=== PATIENT | female | born 1990 ===

== ENCOUNTER 2024-02-10 07:42 | Inpatient (IN) ==
--- OUTSIDE RECORDS SUMMARY | 2024-02-10 08:01 | External Medical Summary | Summary of Care ---
Author Name Unknown Organization [facility] Address [address] [place] [address] Phone [phone] Care Team Providers Care Clinical Mental Health Counselor Name Role Phone Unavailable Primary Care Provider Unavailabl e Reason for Visit * Reason Comments Return Visit [id number] Encounter Details Date Type Department Care Team (Late st Contact Info) Description 02/03/2024 3:30 PM EDT Office Visit Gynecology/Obstetric [facility] [place] [address] [place] [address] Snow Kearney MD [address] [place] [address] Antepartum anemia complicating * Allergies Active Allergy Reactions Criticality Noted Date Comments Amoxicillin 08/15/2004 hives Cefaclor 08/15/2004 hives documented as of this encounter (statuses as of 02/03/2024) Medications Medication Sig Dispensed Refills Start Date End Date Status 27-0.8 MG Oral Tablet Take 1 Tablet by mouth daily at noon. Active Breast PumpIndications:Breas t feeding status of mother Z39.1 1 Each 11/18/2023 Active Iron-Vitamin C 65-125 MG Oral Tablet (Vitron C)Indications:Antepar marlen anemia complicating Take 1 Tablet by mouth in the morning and 1 Tablet before bedtime. 180 Tablet 2 11/19/2023 Active Docusate Sodium 100 MG Oral Capsule (Colace)Indications:A ntepartum anemia complicating Take 1 Capsule by mouth 2 times a day as needed for Constipation. 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 Psychophysiologic insomnia 07/07/2020 Major depressive disorder, recurrent episode, mo derate 10/20/2019 CHARI (generalized anxiety disorder) 10/20/2019 Mood swing 10/20/2019 Low grade squamous intraepit helial lesion (LGSIL) on cervical Pap smear 04/04/2017 Hearing loss 09/16/2015 NONALLLERGIC RHINITIS 08/15/2004 Estimated Date of Delivery Comme nts Yes 02/04/2024 Based on Ultraso und documented as of this encounter (statuses as of 02/03/2024) Immunizations Name Administration Dates Next Due TDAP (age 10 and older)(Boostrix) 10/01/2022, TDAP, Age 7 and older, IM (Adacel) 12/02/2023 documented as of this encounter Social History Tobacco Use Types Packs/Day Years Used Date Smoking Tobacco: Former Cigarettes 0.3 2 0 06/14/2020 - 06/14/2022 Smokeless Tobacco: Never Tobacco Cessation:Counseling Given: Not Answered Alcohol Use Standard Drinks/Week Comments Not Currently 0 (1 standard drink = 0.6 oz pur e alcohol) occasions PHQ-2 Answer Date Recorded PHQ Adult Total Score 8 07/10/2023 Hunger Vital Sign Answer Date Recorded Within the past 12 months, y ou worried that your food would run out before you got the money to buy more. Sometimes true Within the past 12 months, t he food you bought just didn't last and you didn't have money to get more. Sometimes true 06/2023 [place] Depression Scale Answer Date Recorded [place] Depression Scale Total 8 07/14/2023 The thought of harming myself has occurred to me . Never 07/14/2023 Childcare Answer Date Recorded Do you feel overwhelmed with taking care of a child, family member or friend? Yes 01/15/2024 Does your family need help f inding childcare? (Household - for ages 0-17 years) Not on file 01/15/2024 Clothing Answer Date Recorded Have you been unable to get clothing when it was really needed? Yes 01/15/2024 Is your family able to get c lothes or diapers when needed? (Household - for ages 0-17 years) Not on file 01/15/2024 Personal Safety Answer Date Recorded Do you feel unsafe or have concerns for your saf ety? No 01/15/2024 Do you have concerns for you r family's safety? (Household - for ages 0-17 years) Not on file 01/15/2024 Utilities Answer Date Recorded Do you have trouble paying y our heating, water, or electric bill? Yes 01/15/2024 Is your family able to pay t he heat, water, or electric bill? (Household - for ages 0-17 years) Not on file 01/15/2024 Does your family have access to good internet? (Household - for ages 0-17 years) Not on file 01/15/2024 Employment Status Answer Date Recorded Are you unemployed or without regular income? No 01/15/2024 Does the household have a [facility] source of income? (Household - for ages 0-17 years) Not on file 01/15/2024 Social Connections Answer Date Recorded How often do you feel lonely or isolated from those around you? Sometimes 01/15/2024 Financial Resource Strain Answer Date R ecorded Do you have any trouble payi ng for your medications, or do you think you might in the future? No 01/15/2024 Does your family have troubl e paying for medicine? (Household - for ages 0-17 years) Not on file 01/15/2024 Transportation Needs Answer Date Record ed READ ONLY Do you have troubl e getting a ride to medical visits or work? Never True 01/15/2024 Does your family have a hard time getting a ride to doctors visits? (Household - for ages 0-17 years) Not on file 01/15/2024 Has lack of transportation k ept you from medical appointments, meetings, work, or from getting things needed for daily living? Check all that apply. No 01/15/2024 Do you (or your family) have trouble finding or paying for a ride (transportation)? (Household - for ages 0-17 years) Not on file 01/15/2024 Housing Stability Answer Date Recorded Do you currently live in a s helter or have no steady place to sleep at night? No 01/15/2024 READ ONLY Do you think you a re at risk of becoming homeless? No 01/15/2024 Does your family worry about paying for your home or becoming homeless? (Household - for ages 0-17 years) Not on file 1 Are you homeless or worried that you might be in the future? No 01/15/2024 Are you (or your family) edwige eless or worried that you might be in the future? (Household - for ages 0-17 years) Not on file Food Insecurity Answer Date Recorded Do you need food for this week? No 01/15/2024 Are you able to get enough f ood for your family? (Household - for ages 0-17 years) Not on file 01/15/2024 Does your family need food t his week? (Household - for ages 0-17 years) Not on file 01/15/2024 Do you always have enough fo od for your family? (Household - for ages 0-17 years) Not on file 01/15/2024 Estimated Date of Delivery Comme nts Yes 02/04/2024 Based on Ultraso und Sex and Gender Information Value Date Recorded Sex Assigned at Female 08/15/2022 10:12 AM EDT Gender Identity Female 08/15/2022 10:12 AM EDT Sexual Orientation Straight 08/15/2022 10 :12 AM EDT Job Start Date Occupation Industry Not on file Not on file Not on file documented as of this encounter Last Filed Vital Signs Vital Sign Reading Time Taken Comments Blood Pressure 106/64 02/03/2024 3:29 PM EDT Pulse - - Temperature 36.7 C (98.1 F) 02/03/2024 3:29 PM ED T Respiratory Rate - - Oxygen Saturation - - Inhaled Oxygen Concentration - - Weight 65 kg (143 lb 3.2 oz) 02/03/2024 3:29 PM EDT Height - - Body Mass Index 26.19 11/14/2023 11:36 AM EDT documented in this encounter Progress Notes * Snow Kearney MD - 02/03/2024 3:30 PM EDT Patient is 34 year old at 39 6/7 weeks who presents for LUZ visit Denies contractions, leaking of fluid, or vaginal bleeding. Noted good movement. Having more tightening, having more pressure. Would like to be checked today Denies headache, blurry vision, RUQ or epigastric pain. Would like membrane stripped Problem list reviewed BP 106/64 | Temp 36.7 C (98.1 F) | Wt 65 kg (143 lb 3.2 oz) | LMP (LMP Unknown) | BMI 26.19 kg/m | BSA 1.69 m FH: 39 FHT: 140 Cx: 3 stretched to 4/50/-3, soft anterior, membrane stripped per patient's permission Manager R D Documentation Provider requested log yard derrick operator. Name of log yard derrick operator: Kathy Rodriguez LPN US cephalic, placenta posterior fundal Plan: Labor and preeclampsia warnings reviewed Flu vaccine declined previously Offered postdates Induction to be scheduled at [facility] , politely declines at this time Patient was given answering service number and Labor and delivery phone number for [facility] 1 weeks V Caio BERRY PhD documented in this encounter Nursing Notes * Kathy Rodriguez LPN - 02/03/2024 3:26 PM EDT Chief Complaint Patient presents with Return Visit [id number] Pt is with no concerns. GBS neg Kathy Rodriguez LPN documented in this encounter Plan of Treatment Health Maintenance Due Date Last Done Comments Hepatitis B Vaccine (1 of 3 - 19+ 3-dose series) 2009 HPV/Co-Test 01/27/2020 Cervical Cancer Screening 08/25/2023 Pap Smear 08/25/2023 08/24/2020, 03/27/2017, 12/17/2012 COVID-19 Vaccine (2023-2 5 season) 2023 Influenza Vaccine (FLU shot) (#1) 2023 Depression Monitoring 07/09/2024 07/10/2023 DTap/Tdap Vaccines (4 - Td o r Tdap) 12/01/2033 12/02/2023, 10/01/2022, 12/03/2014 HPV (Gardasil) Vaccine Aged Out No lo nger eligible based on patient's age to complete this topic MENINGOCOCCAL (MENACTRA/MENVEO) Aged Out No longer eligible b ased on patient's age to complete this topic Pneumococcal Vaccine: Pediatrics (0 to 5 Years) and At-Risk Patients (6 to 64 Years) Aged Out No longer eligible b ased on patient's age to complete this topic documented as of this encounter Medical Devices Not on filedocumented as of this encounter Visit Diagnoses Diagnosis Antepartum anemia complicating - Primary Anemia, antepartum documented in this encounter"
--- OUTSIDE RECORDS SUMMARY | 2024-02-10 08:01 | External Medical Summary | Summary of Care ---
Author Name Unknown Organization [facility] Address [address] [place] [address] Phone [phone] Care Team Providers Care Outreach Clinician Name Role Phone Unavailable Primary Care Provider Unavailabl e Encounter Details Date Type Department Care Team (Late st Contact Info) Description 02/04/2024 Result Scan Unspecified Department <No scans attached> Allergies Active Allergy Reactions Criticality Noted Date Comments Amoxicillin 08/15/2004 hives Cefaclor 08/15/2004 hives documented as of this encounter (statuses as of 02/05/2024) Medications Medication Sig Dispensed Refills Start Date [...] as of this encounter (statuses as of 02/05/2024) Active Problems Problem Noted Date Diagnosed Date Antepartum anemia complicating 024 Food insecurity 07/21/2023 Overview: Per [facility] Protocol Shift work sleep disorder [...] as of this encounter (statuses as of 02/05/2024) Immunizations Name Administration Dates Next Due TDAP (age 10 and older)(Boostrix) 10/01/2022, TDAP, Age 7 and older, IM (Adacel) 12/02/2023 documented as of this encounter Social History Tobacco Use Types Packs/Day Years Used Date Smoking Tobacco: Former Cigarettes 0.3 2 0 06/14/2020 - 06/14/2022 Smokeless Tobacco: Never Alcohol Use Standard Drinks/Week Comments Not Currently [...] money to get more. Sometimes true 06/2023 [place] Depression Scale Answer Date Recorded [place] Depression Scale Total 8 07/14/2023 The thought [...] No 01/15/2024 Does the household have a re gular source of income? (Household - for ages [...] on file documented as of this encounter Plan of Treatment Upcoming Encounters Date Type Department Care Team (Late st Contact Info) Description 02/10/2024 2:45 PM EDT Office Visit Gynecology/Obstetrics, [place] [address] [address] Vanessa Wiggins PA-C [address] [place] [address] Health Maintenance Due Date Last Done Comments [...] Not on filedocumented as of this encounter Procedures Procedure Name Priority Date/Time Associated Diagnosis Comments OUTSIDE LAB RESULTS 02/04/2024 documented in this encounter Results * OUTSIDE LAB RESULTS (02/04/2024) 02/04/2024 No Physician Data Unknown LABORATORY documented in this encounter
--- OUTSIDE RECORDS SUMMARY | 2024-02-10 08:01 | External Medical Summary | Summary of Care ---
Author Name Unknown Organization [facility] Address [address] [place] [address] Phone [phone] Care Team Providers Care Licensed Massage Practitioner Name Role Phone Unavailable Primary Care Provider Unavailabl e Encounter Details Date Type Department Care Team (Late st Contact Info) Description 02/05/2024 Telephone Gynecology/Obstetrics [facility] [address] [place] [address] Snow Kearney MD [address] [place] [address] Allergies Active Allergy Reactions Criticality Noted Date [...] money to get more. Sometimes true 06/2023 [place] Depression Scale Answer Date Recorded [place] Depression Scale Total 8 07/14/2023 The thought [...] No 01/15/2024 Does the household have a [facility] source of income? (Household - for ages [...] 02/10/2024 2:45 PM EDT Office Visit Gynecology/Obstetrics, [place] [address] [address] Vanessa Wiggins PA-C [address] [address] Health Maintenance Due Date Last Done Comments Hepatitis B Vaccine (1 of 3 - 19+ 3-dose series) 2009 HPV/Co-Test 01/27/2020 Cervical Cancer Screening 08/25/2023 Pap Smear 08/25/2023 08/24/2020, 03/27/2017, 12/17/2012 COVID-19 Vaccine (1 - 2023-2 5 season) 2023 Influenza Vaccine (FLU shot) [...]
--- OUTSIDE RECORDS SUMMARY | 2024-02-10 08:01 | External Medical Summary | Summary of Care ---
Author Name Unknown Organization [facility] Address [address] [place] [address] Phone [phone] Care Team Providers Care Music Writer Name Role Phone Unavailable Primary Care Provider Unavailabl e Reason for Visit * Reason Comments Return Visit [id number] Encounter Details Date Type Department Care Team (Late st Contact Info) Description 02/03/2024 3:30 PM EDT Office Visit Gynecology/Obstetric [facility] [place] [address] [place] [address] Snow Kearney MD [address] [place] [address] Antepartum anemia complicating * Allergies Active Allergy [...] complicating 024 Food insecurity 07/21/2023 Overview: Per [facility] Protocol Shift work sleep disorder [...] money to get more. Sometimes true 06/2023 [place] Depression Scale Answer Date Recorded [place] Depression Scale Total 8 07/14/2023 The thought [...] No 01/15/2024 Does the household have a [facility] source of income? (Household - for ages [...] soft anterior, membrane stripped per patient's permission National Service Officer Documentation Provider requested rail car repairman. Name of rail car repairman: Kathy Rodriguez LPN US cephalic, placenta posterior fundal Plan: Labor and preeclampsia warnings reviewed Flu vaccine declined previously Offered postdates Induction to be scheduled at [facility] , politely declines at this time Patient was given answering service number and Labor and delivery phone number for [facility] 1 weeks V Caio BERRY PhD documented in this encounter Nursing Notes * Kathy Rodriguez LPN - 02/03/2024 3:26 PM EDT Chief Complaint Patient presents with Return Visit 39w6d Pt is with no concerns. GBS neg Kathy Rodriguez LPN documented in this encounter Plan of Treatment Upcoming Encounters Date Type Department Care Team (Late st Contact Info) Description 02/10/2024 2:45 PM EDT Office Visit Gynecology/Obstetrics, [place] [address] [address] Vanessa Wiggins PA-C [address] [place] [place] [address] Health Maintenance Due Date Last Done Comments [...]
--- OUTSIDE RECORDS SUMMARY | 2024-02-10 08:01 | External Medical Summary | Summary of Care ---
Author Name Unknown Organization [facility] Address [address] [place] [address] Phone [phone] Care Team Providers Care Demolition Expert Name Role Phone Belinda Malloy Primary Care Provider [phone] Reason for Visit * Reason Comments Return Visit [id number] Encounter Details Date Type Department Care Team (Late st Contact Info) Description 01/13/2024 11:30 AM EDT Office Visit Gynecology[facility]Obstetric [facility] [address] [place] [address] Vanessa Wiggins PA-C [address] [place] [address] 36 weeks gestation of *; Antepartum anemia complicating Allergies Active Allergy Reactions Criticality Noted Date Comments Amoxicillin 08/15/2004 hives Cefaclor 08/15/2004 hives documented as of this encounter (statuses as of 01/13/2024) Medications Medication Sig Dispensed Refills Start Date [...] as of this encounter (statuses as of 01/13/2024) Active Problems Problem Noted Date Diagnosed Date Antepartum anemia complicating 024 Food insecurity 07/21/2023 Overview: Per [facility] Protocol 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 Patient declined [place] Depression Scale Answer Date Recorded [place] Depression Scale Total 8 07/14/2023 The thought of harming myself has occurred to me . Never 07/14/2023 Childcare Answer Date Recorded Do you feel overwhelmed with taking care of a child, family member or friend? No 07/10/2023 Does your family need help f inding childcare? (Household - for ages 0-17 years) Not on file 07/10/2023 Clothing Answer Date Recorded Have you been unable to get clothing when it was really needed? No 07/10/2023 Is your family able to get c lothes or diapers when needed? (Household - for ages 0-17 years) Not on file 07/10/2023 Personal Safety Answer Date Recorded Do you feel unsafe or have concerns for your saf ety? No 07/10/2023 Do you have concerns for you r family's safety? (Household - for ages 0-17 years) Not on file 07/10/2023 Utilities Answer Date Recorded Do you have trouble paying y our heating, water, or electric bill? Yes 07/10/2023 Is your family able to pay t he heat, water, or electric bill? (Household - for ages 0-17 years) Not on file 07/10/2023 Does your family have access to good internet? (Household - for ages 0-17 years) Not on file 07/10/2023 Employment Status Answer Date Recorded Are you unemployed or without regular income? No 07/10/2023 Does the household have a [facility] source of income? (Household - for ages 0-17 years) Not on file 07/10/2023 Social Connections Answer Date Recorded How often do you feel lonely or isolated from th ose around you? Rarely 07/10/2023 Financial Resource Strain Answer Date R ecorded Do you have any trouble payi ng for your medications, or do you think you might in the future? Yes 07/10/2023 Does your family have troubl e paying for medicine? (Household - for ages 0-17 years) Not on file 07/10/2023 Transportation Needs Answer Date Record ed READ ONLY Do you have troubl e getting a ride to medical visits or work? Never True 07/10/2023 Does your family have a hard time getting a ride to doctors visits? (Household - for ages 0-17 years) Not on file 07/10/2023 Has lack of transportation k ept you from medical appointments, meetings, work, or from getting things needed for daily living? Check all that apply. (Adult - for ages 18 years and over) Not on file 07/10/2023 Do you (or your family) have trouble finding or paying for a ride (transportation)? (Household - for ages 0-17 years) Not on file 07/10/2023 Housing Stability Answer Date Recorded Do you currently live in a s helter or have no steady place to sleep at night? No 07/10/2023 READ ONLY Do you think you a re at risk of becoming homeless? No 07/10/2023 Does your family worry about paying for your home or becoming homeless? (Household - for ages 0-17 years) Not on file 0 07/10/2023 Are you homeless or worried that you might be in the future? (Adult - for ages 18 years and over) Not on file Are you (or your family) edwige eless or worried that you might be in the future? (Household - for ages 0-17 years) Not on file Food Insecurity Answer Date Recorded Do you need food for this week? No 07/10/2023 Are you able to get enough f ood for your family? (Household - for ages 0-17 years) Not on file 07/10/2023 Does your family need food t his week? (Household - for ages 0-17 years) Not on file 07/10/2023 Do you always have enough fo od for your family? (Household - for ages 0-17 years) Not on file 07/10/2023 Estimated Date of Delivery Comme nts Yes [...] Sign Reading Time Taken Comments Blood Pressure 114/68 01/13/2024 11:35 AM EDT Pulse - - Temperature 36.8 C (98.2 F) 01/13/2024 11:35 AM E DT Respiratory Rate - - Oxygen Saturation - - Inhaled Oxygen Concentration - - Weight 63.8 kg (140 lb 9.6 oz) 01/13/2024 11:35 AM EDT Height - - Body Mass Index 25.72 11/14/2023 11:36 AM EDT documented in this encounter Progress Notes * Vanessa Wiggins PA-C - 01/13/2024 11:49 AM EDT Cherie Henderson is a 33 year old female here for her routine OB appointment at 36w6d Her Estimated Date of Delivery: 02/04/24 REVIEW OF SYSTEMS: She affirms movement. Denies vaginal bleeding, LOF, contractions, N/V, headaches Having episodes of lightheadedness, ongoing. She admits that she is likely not drinking enough water, states that sometimes water makes her feel sick. She is eating small frequent meals every 2 hoursat work. She is taking Iron and Vitamin-C. Using only once per week. PHYSICAL EXAM: Filed Vitals: 01/13/24 1135 BP: 114/68 Temp: 36.8 C (98.2 F) TempSrc: Tympanic Weight: 63.8 kg (140 lb 9.6 oz) +FHT 140s Fundal height 37 ASSESSMENT/PLAN: 36 weeks gestation of (Primary) Antepartum anemia complicating - due for repeat CBC, planning to complete this week Supervision of - GBS swab collected today Utility Helicopter Repairer Documentation Patient offered blister rust eradicator and accepted. Name of blister rust eradicator: Shirley lombardi FEATHERER - labor precautions and kick counts reviewed - RTO in 1 week Vanessa Wiggins PA-C documented in this encounter Nursing Notes * Kt Carlson CMA - 01/13/2024 11:36 AM EDT Chief Complaint Patient presents with Return Visit [id number] Pt agreeable to GBS today documented in this encounter Miscellaneous Notes * Addendum Note - Kt Carlson CMA - 01/13/2024 12:31 PM EDTAddended by: KT CARLSON on: 01/13/2024 12:31 PM Modules accepted: Orders documented in this encounter Plan of Treatment Upcoming Encounters Date Type Department Care Team (Late st Contact Info) Description 01/21/2024 2:00 PM EDT Office Visit Gynecology/Obstetrics, [place] [address] [place] [address] Laverne Mazariegos PA-C [address] [place] [address] [place] [phone] Pending Results Name Type Priority Associated Diagnoses Date /Time GROUP B STREP CULTURE/PCR Lab Routine Antepartum anemia complicating 36 weeks gestation of 01/13/2024 12:31 PM EDT Scheduled Orders Name Type Priority Associated Diagnoses Orde r Schedule GROUP B STREP CULTURE/PCR Lab Routine Antepartum anemia complicating 36 weeks gestation of Expected: 01/13/2024, Expires: 01/12/2025 Health Maintenance Due Date Last Done Comments [...] as of this encounter Visit Diagnoses Diagnosis 36 weeks gestation of - Primary state, incidental Antepartum anemia complicating Anemia, antepartum documented in this encounter Care Teams Demolition Expert Relationship Specialty Start Date End Date Belinda Malloy CRNP [address] [phone] PCP - General Nurse Practitioner 05/10/22 documented as of this encounter
--- OUTSIDE RECORDS SUMMARY | 2024-02-10 08:01 | External Medical Summary | Summary of Care ---
Author Name Unknown Organization [facility] Address [address] [place] [address] Phone [phone] Care Team Providers Care Lace Mender Name Role Phone Unavailable Primary Care Provider Unavailabl e Reason for Visit * Reason Comments Return Visit 38w 0d Encounter Details Date Type Department Care Team (Late st Contact Info) Description 01/21/2024 2:00 PM EDT Office Visit Gynecology/Obstetric [place] [address] [place] [address] Laverne Mazariegos PA-C [address] [place] [address] 38 weeks gestation of *; Antepartum anemia complicating Allergies Active Allergy Reactions Criticality Noted Date Comments Amoxicillin 08/15/2004 hives Cefaclor 08/15/2004 hives documented as of this encounter (statuses as of 01/21/2024) Medications Medication Sig Dispensed Refills Start Date [...] as of this encounter (statuses as of 01/21/2024) Active Problems Problem Noted Date Diagnosed Date [...] as of this encounter (statuses as of 01/21/2024) Immunizations Name Administration Dates Next Due TDAP [...] money to get more. Sometimes true 06/2023 [place] Depression Scale Answer Date Recorded [place] Depression Scale Total 8 07/14/2023 The thought [...] No 01/15/2024 Does the household have a [employer] source of income? (Household - for ages [...] Sign Reading Time Taken Comments Blood Pressure 94/60 01/21/2024 2:13 PM EDT Pulse - - Temperature - - Respiratory Rate - - Oxygen Saturation - - Inhaled Oxygen Concentration - - Weight 63.6 kg (140 lb 3.2 oz) 01/21/2024 2:13 P M EDT Height - - Body Mass Index 25.64 11/14/2023 11:36 AM EDT documented in this encounter Progress Notes * Laverne Mazariegos PA-C - 01/21/2024 2:20 PM EDT Cherie Henderson is a 33 year old female here for her routine OB appointment at 38w0d. Her Estimated Date of Delivery: 02/04/24 REVIEW OF SYSTEMS: She affirms movement. Denies vaginal bleeding, LOF, contractions, N/V, headaches PHYSICAL EXAM: Filed Vitals: 01/21/24 1413 BP: 94/60 Weight: 63.6 kg (140 lb 3.2 oz) ASSESSMENT/PLAN: (O99.019) Antepartum anemia complicating Plan: due for repeat labs , orders in (Z3A.38) 38 weeks gestation of - Advised when to call: Vaginal bleeding, leaking of fluid, regular contractions every five minutesfor at least an hour, decreased movement, any other questions or concerns. Reviewed [facility] - RTO in 1 week for LUZ Mazariegso PA-C documented in this encounter Nursing Notes * Shirley Crane LPN - 01/21/2024 2:16 PM EDT Chief Complaint Patient presents with Return Visit 38w 0d documented in this encounter Plan of Treatment Upcoming Encounters Date Type Department Care Team (Late st Contact Info) Description 01/30/2024 3:45 PM EDT Office Visit Gynecology/Obstetrics, [place] [address] [address] Bonny Pool MD [address] [phone] Health Maintenance Due Date Last Done Comments [...] as of this encounter Visit Diagnoses Diagnosis 38 weeks gestation of - Primary state, incidental Antepartum anemia complicating Anemia, antepartum documented in this encounter
--- OUTSIDE RECORDS SUMMARY | 2024-02-10 08:02 | External Medical Summary | Summary of Care ---
Author Name Unknown Organization [facility] Address [address] [place] [address] Phone [phone] Care Team Providers Care Cylinder Machine Operator Name Role Phone Belinda Malloy Primary Care Provider +1- [phone] Encounter Details Date Type Department Care Team (Late st Contact Info) Description 11/19/2023 Telephone Gynecology/Obstetrics, [place] [address] [place] [address] Niecy Mendes CNM [address] [place] [address] Allergies Active Allergy Reactions Criticality Noted Date Comments Amoxicillin 08/15/2004 hives Cefaclor 08/15/2004 hives documented as of this encounter (statuses as of 11/19/2023) Medications Medication Sig Dispensed Refills Start Date End Date Status 27-0.8 MG Oral Tablet Take 1 Tablet by mouth daily at noon. Active Metoclopramide HCl 5 MG Oral Tablet (Reglan) Take 2 Tablets by mouth every 8 hours as needed for Nausea. 20 Tablet 08/15/2023 Active Breast PumpIndications:Breas t feeding status of mother Z39.1 1 Each 11/18/2023 Active documented as of this encounter (statuses as of 11/19/2023) Active Problems Problem Noted Date Diagnosed Date Food insecurity 07/21/2023 Overview: Per [employer] [...] as of this encounter (statuses as of 11/19/2023) Immunizations Name Administration Dates Next Due TDAP (age 10 and older)(Boostrix) 10/01/2022, documented as of this encounter Social History [...] have money to get more. Patient declined [place] Depression Scale Answer Date Recorded [place] Depression Scale Total 8 07/14/2023 The thought [...] No 07/10/2023 Does the household have a re gular [...] on file documented as of this encounter Miscellaneous Notes * Telephone Encounter - Kathy Rodriguez LPN - 11/19/2023 9:58 AM EDT Tc to pt, pt expressed understanding. Kathy Rodriguez LPN * Telephone Encounter - Niecy Mendes CNM - 11/19/2023 9:36 AM EDT Agree with advice. In addition, vomiting without nausea is often related to reflux. She could try taking Pepcid an hour before going to bed. * Telephone Encounter - Kathy Rodriguez LPN - 11/19/2023 9:21 AM EDT Pt calling in with concerns of N/V. States she is being sent home from work again d/t this. Pt states she has not been taking anything for nausea as she states she usually does not get nauseathe vomiting usually just comes out of nowhere. States her BP was 98/60 at work when the nurse at her employment took it today. States on Friday she was sent to the ER for the vomiting and chest pain and states everything was coming back okay. Today she states she is not having any chest pains. Below information was recommended: I would recommend nibbling on some crackers, toast, or dry cereal about 20-30 minutes before you get out of bed. Eat 4-5 small but frequent meals during the day instead of three large ones. Don't allow your stomach to empty completely. Avoid fried, spicy or rich foods or any that seem to give you indigestion. Try 25mg of vitamin B6 with each meal and 1 at night with 1/2 (25mg) tablet of unisom. Sip tea made from gingeroot, peppermint or chamomile. Sanjeev snap cookies, sanjeev capsules and crystalized sanjeev can help reduce nausea. Avoid strong smells such as cooking odors or heavy perfume if they bother you. Try anti-nausea bracelet such as Sea-Bands. Sanjeev capsules Vitamin B6 Bonine Dramamine Please advise anything further you would recommend. Kathy Rodriguez LPN documented in this encounter Plan of Treatment Upcoming Encounters Date Type Department Care Team (Late st Contact Info) Description 12/02/2023 1:00 PM EDT Office Visit Gynecology/Obstetrics, [place] [address] [address] Vanessa Wiggins PA-C [address] [address] Health Maintenance Due Date Last Done Comments Hepatitis B Vaccine (1 of 3 - 19+ 3-dose series) 2009 HPV/Co-Test 01/27/2020 COVID-19 Vaccine (2022-2 4 season) 2022 Cervical Cancer Screening 08/25/2023 Pap Smear 08/25/2023 08/24/2020, 03/27/2017, 12/17/2012 Influenza Vaccine (FLU shot) (#1) 2023 Depression Monitoring 07/09/2024 07/10/2023 DTaP,Tdap,and Td Vaccines (3 - Td or Tdap) 10/01/2032 10/01/2022, 12/03/2014 HPV (Gardasil) Vaccine Aged Out [...] Not on filedocumented as of this encounter Care Teams Cylinder Machine Operator Relationship Specialty Start Date End Date Belinda Malloy CRNP [address] [address] PCP - General Nurse Practitioner 05/10/22 documented as of this encounter
--- OUTSIDE RECORDS SUMMARY | 2024-02-10 08:02 | External Medical Summary | Summary of Care ---
Author Name Unknown Organization [facility] Address [address] [place] [address] Phone [phone] Care Team Providers Care Food Service Coordinator Name Role Phone Belinda Malloy Primary Care Provider +1- [phone] Encounter Details Date Type Department Care Team (Late st Contact Info) Description 12/04/2023 Orders Only PATIENT PORTAL DO NOT DELETE THIS DEPT USED BY [address] [place] [id number] Allergies Active Allergy Reactions Criticality Noted Date Comments Amoxicillin 08/15/2004 hives Cefaclor 08/15/2004 hives documented as of this encounter (statuses as of 12/04/2023) Medications Medication Sig Dispensed Refills Start Date [...] as of this encounter (statuses as of 12/04/2023) Active Problems Problem Noted Date Diagnosed Date [...] as of this encounter (statuses as of 12/04/2023) Immunizations Name Administration Dates Next Due TDAP [...] have money to get more. Patient declined [place] Depression Scale Answer Date Recorded [place] Depression Scale Total 8 07/14/2023 The thought [...] No 07/10/2023 Does the household have a [employer] source of income? (Household - for ages [...] Care Team (Late st Contact Info) Description 12/16/2023 2:30 PM EDT Office Visit Gynecology/Obstetrics, [place] [address] [address] Snow Kearney MD [address] [phone] Health Maintenance Due Date Last Done Comments Hepatitis B Vaccine (1 of 3 - 19+ 3-dose series) 2009 HPV/Co-Test 01/27/2020 COVID-19 Vaccine (1 - 2022-2 4 season) 2022 Cervical Cancer Screening 08/25/2023 Pap Smear 08/25/2023 08/24/2020, 03/27/2017, 12/17/2012 Influenza Vaccine (FLU shot) (#1) 2023 Depression Monitoring 07/09/2024 07/10/2023 DTaP,Tdap,and Td Vaccines (4 - Td or Tdap) 12/01/2033 12/02/2023, 10/01/2022, 12/03/2014 HPV (Gardasil) [...] filedocumented as of this encounter Care Teams Food Service Coordinator Relationship Specialty Start Date End Date Belinda Malloy CRNP [address] [id number] PCP - General Nurse Practitioner 05/10/22 documented as of this encounter
--- OUTSIDE RECORDS SUMMARY | 2024-02-10 08:02 | External Medical Summary ---
Author Name Unknown Address Unknown Organization K01:[facility] [address] [place] [address] Laboratory Report Ordering Provider Test Date Status KARL HERNÁNDEZ 01/13/2024 12:31:37 Final Observation Date Value Abnormality Reference (Units ) Status Streptococcus agalactiae DNA [Presence] in Specimen by MAYA with probe detection 01/13/2024 12:31:37 Negative Negative Final No Group B Streptococcus det ected by culture-enhanced PCR (amplified probe). GBS GBS[facility] - [facility] 01/13/2024 12:31:37 0.0 Final GBS SPCCT - [facility] 01/13/2024 12:31:37 31.0 Final Performing Location [facility] [place] [facility] [place] [address] [place] [address]
--- OUTSIDE RECORDS SUMMARY | 2024-02-10 08:02 | External Medical Summary | Summary of Care ---
Author Name Unknown Organization [facility] Address [address] [place] [address] Phone [phone] Care Team Providers Care News Assignment Editor Name Role Phone Belinda Malloy Primary Care Provider +1- [phone] Encounter Details Date Type Department Care Team (Late st Contact Info) Description 11/19/2023 Orders Only Laboratory, [facility] [address] [place] [address] Laverne Mazariegos PA-C [address] [place] [address] Antepartum anemia complicating * Allergies Active Allergy [...] for Nausea. 20 Tablet 08/15/2023 Active Breast PumpIndications:Marimar ast feeding status of mother Z39.1 1 Each 11/18/2023 Active Miconazole Nitrate 2 % Vaginal Cream (Monistat 7) Administer into the vagina daily for 7 days. 45 g 11/19/2023 11/26/2023 Active Iron-Vitamin C 65-125 MG Oral Tablet (Vitron C)Indications:Antep artum anemia complicating Take 1 Tablet by mouth in the morning and 1 Tablet before bedtime. 180 Tablet 2 11/19/2023 Active Docusate Sodium 100 MG Oral Capsule (Colace)Indications :Antepartum anemia complicating Take 1 Capsule by mouth 2 times a day as needed for Constipation. 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 Patient declined [place] Depression Scale Answer Date Recorded [place] Depression Scale Total 8 07/14/2023 The thought [...] 12/02/2023 1:00 PM EDT Office Visit Gynecology/Obstetrics, [place] [address] [place] [address] [address] [address] Vanessa Wiggins PA-C [address] [place] [place] [address] Health Maintenance Due Date Last Done Comments [...] - Primary Anemia, antepartum documented in this encounter Care Teams News Assignment Editor Relationship Specialty Start Date End Date Belinda Malloy CRNP [address] [place] [place] [address] PCP - General Nurse Practitioner 05/10/22 documented as of this encounter
--- OUTSIDE RECORDS SUMMARY | 2024-02-10 08:02 | External Medical Summary | Summary of Care ---
Author Name Unknown Organization [facility] Address [address] [place] [address] Phone [phone] Care Team Providers Care Physical Fitness Teacher Name Role Phone Belinda Malloy Primary Care Provider +1- [phone] Reason for Visit * Reason Onset Date Comments Forms Request 12/30/2023 Encounter Details Date Type Department Care Team (Late st Contact Info) Description 12/30/2023 Telephone Gynecology/Obstetrics [facility] [address] [place] [address] Snow Kearney MD [address] [place] [address] Forms Request Allergies Active Allergy Reactions Criticality Noted Date Comments Amoxicillin 08/15/2004 hives Cefaclor 08/15/2004 hives documented as of this encounter (statuses as of 12/30/2023) Medications Medication Sig Dispensed Refills Start Date [...] as of this encounter (statuses as of 12/30/2023) Active Problems Problem Noted Date Diagnosed Date [...] as of this encounter (statuses as of 12/30/2023) Immunizations Name Administration Dates Next Due TDAP [...] have money to get more. Patient declined [place] Depression Scale Answer Date Recorded [place] Depression Scale Total 8 07/14/2023 The thought [...] 07/10/2023 Does the household have a re lar source of income? (Household - for ages [...] encounter Miscellaneous Notes * Telephone Encounter - Mana Hess OSA - 12/30/2023 3:23 PM EDT Signed, placed at ict help desk technician * Telephone Encounter - Mana Hess OSA - 12/30/2023 12:45 PM EDT FMLA forms placed on Dr. Kearney's desk to be signed documented in this encounter Plan of Treatment Upcoming Encounters Date Type Department Care Team (Late st Contact Info) Description 01/13/2024 11:30 AM EDT Office Visit Gynecology/Obstetrics, [place] [address] [place] [address] Vanessa Wiggins PA-C [address] [place] [address] Health Maintenance Due Date [...] filedocumented as of this encounter Care Teams Physical Fitness Teacher Relationship Specialty Start Date End Date Belinda Malloy CRNP [address] [phone] PCP - General Nurse Practitioner 05/10/22 documented as of this encounter
--- OUTSIDE RECORDS SUMMARY | 2024-02-10 08:02 | External Medical Summary | Summary of Care ---
Author Name Unknown Organization [facility] Address [address] [place] [address] Phone [phone] Care Team Providers Care Senior Commissions Analyst Name Role Phone Belinda Malloy Primary Care Provider +1- [phone] Encounter Details Date Type Department Care Team (Late st Contact Info) Description 11/18/2023 3:30 PM EDT Office Visit Gynecology/Obstetric [facility] [address] [place], [place] [phone] Leann Raya [facility] [address] [place] [address] Supervision of other normal , antepartum* Allergies Active Allergy Reactions Criticality Noted Date Comments Amoxicillin 08/15/2004 hives Cefaclor 08/15/2004 hives documented as of this encounter (statuses as of 11/18/2023) Medications Medication Sig Dispensed Refills Start Date [...] as of this encounter (statuses as of 11/18/2023) Active Problems Problem Noted Date Diagnosed Date [...] as of this encounter (statuses as of 11/18/2023) Immunizations Name Administration Dates Next Due TDAP [...] have money to get more. Patient declined [place] Depression Scale Answer Date Recorded [place] Depression Scale Total 8 07/14/2023 The thought [...] No 07/10/2023 Does the household have a [facility] source of income? (Household - for [...] on file documented as of this encounter Progress Notes * Leann Raya CNM - 11/18/2023 3:50 PM EDT Cherie Henderson is a 33 year old female here for her routine OB appointment at 28w6d Her Estimated Date of Delivery: 02/04/24 REVIEW OF SYSTEMS: She affirms movement. Denies vaginal bleeding, LOF, contractions, N/V, headaches ED visit 11/13 - left sided chest pain - possible gas/heartburn/indigestion. Having some vaginal itching for a month. Denies discharge or odor. PHYSICAL EXAM: Filed Vitals: 11/18/23 1523 BP: 120/68 Temp: 36.9 C (98.4 F) Weight: 61.6 kg (135 lb 12.8 oz) ASSESSMENT/PLAN: Supervision of other normal , antepartum (Primary) Supervision of - recommended tdap vaccine - patient declines today - will consider and let us know - planning to complete CBC, GTT today - she needs a prescription for a breast pump - rhogam not needed d/t O+ blood type - labor precautions and kick counts reviewed - may start 7 day OTC Monistat treatment for yeast - RTO in 2 weeks Leann Raya CNM documented in this encounter Plan of Treatment Upcoming Encounters Date Type Department Care Team (Late st Contact Info) Description 12/02/2023 1:00 PM EDT Office Visit Gynecology/Obstetrics, [place] [address] [address] Vanessa Wiggins PA-C [address] [place] [phone] Health Maintenance Due Date Last Done Comments Hepatitis B Vaccine (1 of 3 - 19+ 3-dose series) 2009 HPV/Co-Test 01/27/2020 COVID-19 Vaccine ( - 2022-2 4 season) 2022 Cervical Cancer [...] as of this encounter Visit Diagnoses Diagnosis Supervision of other normal , antepartum- Primary documented in this encounter Care Teams Senior Commissions Analyst Relationship Specialty Start Date End Date Belinda Malloy CRNP [address] [id number] PCP - General Nurse Practitioner 05/10/22 documented as of this encounter
--- OUTSIDE RECORDS SUMMARY | 2024-02-10 08:02 | External Medical Summary | Summary of Care ---
Author Name Unknown Organization [facility] Address [address] [place] [address] Phone [phone] Care Team Providers Care Warble Saw Operator Name Role Phone Belinda Malloy Primary Care Provider +1- [phone] Reason for Visit * Reason Comments Return Visit 34w6d Encounter Details Date Type Department Care Team (Late st Contact Info) Description 12/30/2023 10:45 AM EDT Office Visit Gynecology/Obstetric [facility] [address] [place], [place] [phone] Snow Kearney MD [address] [place] [address] 34 weeks gestation of *; Antepartum anemia complicating ; Supervision of other normal , antepartum Allergies Active Allergy Reactions Criticality Noted Date Comments Amoxicillin 08/15/2004 hives Cefaclor 08/15/2004 hives documented as of this encounter (statuses as of 12/30/2023) Medications Medication Sig Dispensed Refills Start Date End Date Status 27-0.8 MG Oral Tablet Take 1 Tablet by mouth daily at noon. Active Breast PumpIndications:B reast feeding status of mother Z39.1 1 Each 11/18/2023 Active Iron-Vitamin C 65-125 MG Oral Tablet (Vitron C)Indications:Ant epartum anemia complicating Take 1 Tablet by mouth in the morning and 1 Tablet before bedtime. 180 Tablet 2 11/19/2023 Active Docusate Sodium 100 MG Oral Capsule (Colace)Indicatio ns:Antepartum anemia complicating Take 1 Capsule by mouth 2 times a day as needed for Constipation. 60 Capsule 5 11/19/2023 Active Miconazole Nitrate 2 % Vaginal Cream (Monistat 7) Administer into the vagina daily for 7 days. 45 g 11/19/2023 4 Discontinued documented as of this encounter (statuses as of 12/30/2023) Active Problems Problem Noted Date Diagnosed Date Antepartum anemia complicating 024 Food insecurity 07/21/2023 Overview: Per [facility] [facility] Protocol Shift work sleep disorder [...] have money to get more. Patient declined [place] Depression Scale Answer Date Recorded [place] Depression Scale Total 8 07/14/2023 The thought [...] Sign Reading Time Taken Comments Blood Pressure 102/60 12/30/2023 10:53 AM EDT Pulse - - Temperature 36.6 C (97.8 F) 12/30/2023 1 0:53 AM EDT Respiratory Rate - - Oxygen Saturation - - Inhaled Oxygen Concentration - - Weight 62.5 kg (137 lb 12.8 oz) 024 10:53 AM EDT Height - - Body Mass Index 25.2 11/14/2023 11:36 AM EDT documented in this encounter Progress Notes * Snow Kearney MD - 12/30/2023 10:45 AM EDT Patient is 33 year old at 34 6/7 weeks who presents for LUZ visit Denies contractions, leaking of fluid, or vaginal bleeding. Noted good movement Denies headache, blurry vision, or epigastric pain. Still having rib pain, states on she had all over chest pain that was very mild. Stayed in bed all day and then went to work on Friday and was told her blood pressure was low in the80s. She also vomited at that time and went home. She then worked on Friday and Friday and felt much better. She did not go to the emergency department when she had the chest pain. States her previous workup was negative and it was due to the discomforts of . She is papers today she needs to be signed as she missed work Problem list reviewed BP 102/60 | Temp 36.6 C (97.8 F) | Wt 62.5 kg (137 lb 12.8 oz) | LMP (LMP Unknown) | BMI 25.20 kg/m | BSA 1.65 m FH: 34 FHT: 132 Plan: Labor and preeclampsia warnings reviewed Flu vaccine declined RSV vaccine (32-36 6/7) declined Reviewed ER precautions, if patient has any further episodes of chest complaints to immediately go to the emergency department. Discuss although discomforts of are more common, can mask underlying issues or new medical emergency such as pulmonary embolism or cardiomyopathy RTC 2 weeks with REHAN V Caio BERRY PhD documented in this encounter Nursing Notes * Holli Mcintyre LPN - 12/30/2023 10:54 AM EDT Chief Complaint Patient presents with Return Visit 34w6d Pt reports that she had another incident with having chest pain and then vomiting. Pt has been evaluated in ED previously for this. Holli Mcintyre LPN 12/30/2023 10:54 AM documented in this encounter Plan of Treatment Upcoming Encounters Date Type Department Care Team (Late st Contact Info) Description 01/13/2024 11:30 AM EDT Office Visit Gynecology/Obstetrics, [place] [address] [place] [address] [address] Vanessa Wiggins PA-C [address] [place] [address] [address] Health Maintenance Due Date [...] as of this encounter Visit Diagnoses Diagnosis 34 weeks gestation of - Primary state, incidental Antepartum anemia complicating Anemia, antepartum Supervision of other normal , antepartum documented in this encounter Care Teams Warble Saw Operator Relationship Specialty Start Date End Date Belinda Malloy CRNP [address] [address] PCP - General Nurse Practitioner 05/10/22 documented as of this encounter"
--- OUTSIDE RECORDS SUMMARY | 2024-02-10 08:02 | External Medical Summary | Summary of Care ---
Author Name Unknown Organization [facility] Address [address] [place] [address] Phone [phone] Care Team Providers Care Wholesale Loan Processor Name Role Phone Belinda Malloy Primary Care Provider +1- [phone] Encounter Details Date Type Department Care Team (Late st Contact Info) Description 11/19/2023 Orders Only Gynecology/Obstetrics, [place] [address] [place] [phone] Niecy Mendes CNM [address] [place] [address] Allergies Active Allergy Reactions Criticality [...] for Nausea. 20 Tablet 08/15/2023 Active Breast PumpIndications:[place] feeding status of mother Z39.1 1 Each 11/18/2023 Active Miconazole Nitrate 2 % Vaginal Cream (Monistat 7) Administer into the vagina daily for 7 days. 45 g 11/19/2023 11/26/2023 Active documented as of this encounter (statuses [...] have money to get more. Patient declined [place] Depression Scale Answer Date Recorded [place] Depression Scale Total 8 07/14/2023 The thought [...] 12/02/2023 1:00 PM EDT Office Visit Gynecology/Obstetrics, [place] [address] [address] Vanessa Wiggins PA-C [address] [phone] Health Maintenance Due Date Last Done Comments [...] filedocumented as of this encounter Care Teams Wholesale Loan Processor Relationship Specialty Start Date End Date Belinda Malloy CRNP [address] [facility] [place] [address] PCP - General Nurse Practitioner 05/10/22 documented as of this encounter
--- OUTSIDE RECORDS SUMMARY | 2024-02-10 08:02 | External Medical Summary | Summary of Care ---
Author Name Unknown Organization [facility] Address [address] [place] [address] Phone [phone] Care Team Providers Care Unit Leader Name Role Phone Belinda Malloy Primary Care Provider +1- [phone] Reason for Visit * Reason Comments Outpatient Testing Encounter Details Date Type Department Care Team (Late st Contact Info) Description 11/18/2023 3:10 PM EDT Laboratory Laboratory, [facility] [address] [place] [phone] [facility], Lab [address] [place], [place] [phone] 22 weeks gestation of Allergies Active Allergy Reactions Criticality Noted Date [...] needed for Nausea. 20 Tablet 08/15/2023 Active documented as of this encounter (statuses [...] have money to get more. Patient declined [place] Depression Scale Answer Date Recorded [place] Depression Scale Total 8 07/14/2023 The thought [...] 12/02/2023 1:00 PM EDT Office Visit Gynecology/Obstetrics, [place] [address] [address] Vanessa Wiggins PA-C [address] [place] [place] [address] Pending Results Name Type Priority Associated Diagnoses Date /Time 50-G GESTATIONAL GLUCOSE, 1 HOUR Lab Routine 22 weeks gestation of 11/18/2023 4:04 PM EDT CBC WITH WBC DIFFERENTIAL AND ANEMIA REFLEX WORKUP Lab Routine 22 weeks gestation of 11/18/2023 4:04 PM EDT SYPHILIS ANTIBODY SCREEN WITH REFLEX TO RPR Lab Routine 22 weeks gestation of 11/18/2023 4:04 PM EDT ANEMIA CBC Lab Routine 22 weeks gestation of 11/18/2023 4:04 PM EDT DIFFERENTIAL, AUTOMATED Lab Routine 22 weeks gestation of 11/18/2023 4:04 PM EDT ANEMIA REFLEX CHEMISTRY HOLD Lab Routine 22 weeks gestation of 11/18/2023 4:04 PM EDT SYPHILIS ANTIBODY SCREEN Lab Routine 22 weeks gestation of 11/18/2023 4:04 PM EDT Health Maintenance Due Date Last Done Comments [...] as of this encounter Visit Diagnoses Diagnosis 22 weeks gestation of state, incidental documented in this encounter Care Teams Unit Leader Relationship Specialty Start Date End Date Belinda Malloy CRNP [address] [address] PCP - General Nurse Practitioner 05/10/22 documented as of this encounter
--- OUTSIDE RECORDS SUMMARY | 2024-02-10 08:02 | External Medical Summary | Summary of Care ---
Author Name Unknown Organization [facility] Address [address] [place] [address] Phone [phone] Care Team Providers Care University Relations Vice President Name Role Phone Belinda Malloy Primary Care Provider +1- [phone] Reason for Visit * Reason Comments Return Visit 36w6d Encounter Details Date Type Department Care Team (Late st Contact Info) Description 01/13/2024 11:30 AM EDT Office Visit [facility]necology[facility]stetric [facility] [address] [place] [address] Vanessa Wiggins PA-C [address] [place] [address] 36 weeks gestation of *; Antepartum anemia [...] complicating 024 Food insecurity 07/21/2023 Overview: Per [facility] Protocol 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 Name of maintenance mgr: Shirley lombardi VISUAL EFFECTS EDITOR - labor precautions and kick counts reviewed - RTO in 1 week Vanessa Wiggins PA-C documented in this encounter Nursing Notes * Jenny Echavarria CMA - 01/13/2024 11:36 AM EDT Chief Complaint Patient presents with Return Visit 36w6d Pt agreeable to GBS today documented in this encounter Plan of Treatment Upcoming Encounters Date Type Department Care Team (Late st Contact Info) Description 01/21/2024 2:00 PM EDT Office Visit Gynecology/Obstetrics, [place] [address] [place] [address] Laverne Mazariegos PA-C [address] [place] [address] Health Maintenance Due Date Last Done Comments [...] antepartum documented in this encounter Care Teams University Relations Vice President Relationship Specialty Start Date End Date Belinda Malloy CRNP [address] [facility] [place] [address] PCP - General Nurse Practitioner 05/10/22 documented as of this encounter
--- OUTSIDE RECORDS SUMMARY | 2024-02-10 08:02 | External Medical Summary | Summary of Care ---
Author Name Unknown Organization [facility] Address [address] [place] [address] Phone [phone] Care Team Providers Care Licensed Guide Name Role Phone Belinda Malloy Primary Care Provider +1- [phone] Reason for Visit * Reason Comments Return Visit 30w6d Encounter Details Date Type Department Care Team (Late st Contact Info) Description 12/02/2023 1:00 PM EDT Office Visit [facility]necology[facility]Obstetric [facility] [address] [place], [place] [phone] Vanessa Wiggins PA-C [address] [place] [address] 30 weeks gestation of *; Antepartum anemia complicating ; Need for prophylactic vaccination with combined bitdhuccmn-xhgjhwk-xc rtussis (DTP) vaccine Allergies Active Allergy Reactions Criticality Noted Date Comments Amoxicillin 08/15/2004 hives Cefaclor 08/15/2004 hives documented as of this encounter (statuses as of 12/02/2023) Medications Medication Sig Dispensed Refills Start Date [...] as of this encounter (statuses as of 12/02/2023) Active Problems Problem Noted Date Diagnosed Date Antepartum anemia complicating 024 Food insecurity 07/21/2023 Overview: Per [facility] Protocol 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 Patient declined [place] Depression Scale Answer Date Recorded [place] Depression Scale Total 8 07/14/2023 The thought [...] Sign Reading Time Taken Comments Blood Pressure 100/60 12/02/2023 12:55 PM EDT Pulse - - Temperature 36.8 C (98.2 F) 12/02/2023 12:55 PM E DT Respiratory Rate - - Oxygen Saturation - - Inhaled Oxygen Concentration - - Weight 61.5 kg (135 lb 9.6 oz) 12/02/2023 12:55 PM EDT Height - - Body Mass Index 24.8 11/14/2023 11:36 AM EDT documented in this encounter Progress Notes * Vanessa Wiggins PA-C - 12/02/2023 1:05 PM EDT Cherie Henderson is a 33 year old female here for her routine OB appointment at 30w6d Her Estimated Date of Delivery: 02/04/24 REVIEW OF SYSTEMS: She affirms movement. Denies vaginal bleeding, LOF, contractions, N/V, headaches She reports episodes of BP dropping at work, feels that she is not able to drink enough. Feels lightheaded and dizzy, occasional vomiting. She does snack on her break, and takes a break every 2 hours. Having some trouble with sleeping - feels some discomfort in her upper abdomen/pelvis. She uses unisom at bedtime on occasion, but this causes grogginess. Has not yet started iron as prescribed. Prior iron tablet made her sick/vomit in the past. PHYSICAL EXAM: Filed Vitals: 12/02/23 1255 BP: 100/60 Temp: 36.8 C (98.2 F) Weight: 61.5 kg (135 lb 9.6 oz) +FHT 140s Fundal height 30 ASSESSMENT/PLAN: 30 weeks gestation of (Primary) Antepartum anemia complicating - CBC WITH WBC DIFFERENTIAL AND ANEMIA REFLEX WORKUP; Future; Expected date: 12/16/2023 Need for prophylactic vaccination with combined kjhhnhoask-qvnvjpw-oeylvxqto (DTP) vaccine - TDAP (AGE 7 AND OLDER), ADACEL - IMM. ADM.,SGL/COMBO VAC/TOXOID Supervision of - labor precautions and kick counts reviewed - RTO in 2 weeks Vanessa Wiggins PA-C documented in this encounter Nursing Notes * Constanza Flores RN - 12/02/2023 1:32 PM EDT Pre-Administration Time Out Procedure Performed: Yes Patient Identified (Ask Name/Date of ): Yes Does the patient have a fever greater than 101 degrees today? No Patient allergic to latex? No Has the patient ever fainted after receiving an injection? No VFC Stock: No Immunization(s) verified: Yes, Immunization Name: Tdap (Adacel), VIS Sheet(s) given: Yes Verified Side and Site: Yes Verified Shot(s) with Parent(s)/Patient: Yes Constanza Flores RN * Kathy Rodriguez LPN - 12/02/2023 12:52 PM EDT Chief Complaint Patient presents with Return Visit 30w6d Pt is with no concerns. Kathy Rodriguez LPN documented in this encounter Plan of Treatment Upcoming Encounters Date Type Department Care Team (Late st Contact Info) Description 12/16/2023 2:30 PM EDT Office Visit Gynecology/Obstetrics, [place] [address] [place] [address] Snow Kearney MD [address] [place] [place] [address] Scheduled Orders Name Type Priority Associated Diagnoses Orde r Schedule CBC WITH WBC DIFFERENTIAL AND ANEMIA REFLEX WORKUP Lab Routine Antepartum anemia complicating Expected: 12/16/2023 (Approximate), Expires: 12/01/2024 Health Maintenance Due Date Last Done Comments [...] as of this encounter Visit Diagnoses Diagnosis 30 weeks gestation of - Primary state, incidental Antepartum anemia complicating Anemia, antepartum Need for prophylactic vaccination with combined bfkggscorz-tscufsa-ezoxfiqap (DTP) vaccine documented in this encounter Care Teams Licensed Guide Relationship Specialty Start Date End Date Belinda Malloy CRNP [address] [id number] PCP - General Nurse Practitioner 05/10/22 documented as of this encounter
--- OUTSIDE RECORDS SUMMARY | 2024-02-10 08:02 | External Medical Summary | Summary of Care ---
Author Name Unknown Organization [facility] Address [address] [place] [address] Phone [phone] Care Team Providers Care Home Health Physical Therapist Name Role Phone Belinda Malloy Primary Care Provider +1- [phone] Encounter Details Date Type Department Care Team (Late st Contact Info) Description 11/18/2023 3:30 PM EDT Office Visit Gynecology/Obstetric [facility] [address] [place], [place] [phone] Leann Raya [facility] [address] [place] [address] Supervision of other normal , antepartum*; Vaginal itching Allergies Active Allergy Reactions Criticality Noted Date [...] have money to get more. Patient declined [place] Depression Scale Answer Date Recorded [place] Depression Scale Total 8 07/14/2023 The thought [...] of this encounter Progress Notes * Leann Raya, PAZ - 11/18/2023 3:50 PM EDT Cherie Henderson [...] Leann Raya CNM documented in this encounter Miscellaneous Notes * Addendum Note - Kt Carlson CMA - 11/18/2023 4:36 PM EDTAddended by: KT CARLSON on: 11/18/2023 04:36 PM Modules accepted: Orders documented in this encounter Plan of Treatment Upcoming Encounters Date Type Department Care Team (Late st Contact Info) Description 12/02/2023 1:00 PM EDT Office Visit Gynecology/Obstetrics, [place] [address] [place] [address] Vanessa Wiggins PA-C [address] [place] [phone] Pending Results Name Type Priority Associated Diagnoses Date /Time VAGINOSIS PANEL, PCR Lab Routine Vaginal itching 11/18/2023 4:36 PM EDT Scheduled Orders Name Type Priority Associated Diagnoses Orde r Schedule VAGINOSIS PANEL, PCR Lab Routine Vaginal itching Expected: 11/18/2023, Expires: 11/17/2024 Health Maintenance Due Date Last Done Comments [...] Supervision of other normal , antepartum- Primary Vaginal itching Pruritus of genital organs documented in this encounter Care Teams Home Health Physical Therapist Relationship Specialty Start Date End Date Belinda Malloy CRNP 21 [facility] [place] [phone] PCP - General Nurse Practitioner 05/10/22 documented as of this encounter
--- OUTSIDE RECORDS SUMMARY | 2024-02-10 08:02 | External Medical Summary | Summary of Care ---
Author Name Unknown Organization [facility] Address [address] [place] [address] Phone [phone] Care Team Providers Care Automatic Pinsetter Mechanic Name Role Phone Belinda Malloy Primary Care Provider +1- [phone] Reason for Visit * Reason Comments Return Visit 32w6d Encounter Details Date Type Department Care Team (Late st Contact Info) Description 12/16/2023 2:30 PM EDT [facility] [address] [place] [address] Snow Kearney MD [address] [place] [address] 32 weeks gestation of *; Antepartum anemia complicating ; Supervision of other normal , antepartum Allergies Active Allergy Reactions Criticality Noted Date Comments Amoxicillin 08/15/2004 hives Cefaclor 08/15/2004 hives documented as of this encounter (statuses as of 12/16/2023) Medications Medication Sig Dispensed Refills Start Date End Date Status 27-0.8 MG Oral Tablet Take 1 Tablet by mouth daily at noon. Active Breast PumpIndications:Br east feeding status of mother Z39.1 1 Each 11/18/2023 Active Iron-Vitamin C 65-125 MG Oral Tablet (Vitron C)Indications:Ante anemia complicating Take 1 Tablet by mouth in the morning and 1 Tablet before bedtime. 180 Tablet 2 11/19/2023 Active Docusate Sodium 100 MG Oral Capsule (Colace)Indication s:Antepartum anemia complicating Take 1 Capsule by mouth 2 times a day as needed for Constipation. 60 Capsule 5 11/19/2023 Active Metoclopramide HCl 5 MG Oral Tablet (Reglan) Take 2 Tablets by mouth every 8 hours as needed for Nausea. 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 Patient declined [place] Depression Scale Answer Date Recorded [place] Depression Scale Total 8 07/14/2023 The thought [...] Sign Reading Time Taken Comments Blood Pressure 110/64 12/16/2023 2:35 PM EDT Pulse - - Temperature 36.6 C (97.9 F) 12/16/2023 2:35 PM ED T Respiratory Rate - - Oxygen Saturation - - Inhaled Oxygen Concentration - - Weight 62.9 kg (138 lb 9.6 oz) 12/16/2023 2:35 P M EDT Height - - Body Mass Index 25.35 11/14/2023 11:36 AM EDT documented in this encounter Progress Notes * Snow Kearney MD - 12/16/2023 2:30 PM EDT Patient is 33 year old at 32 6/7 weeks who presents for LUZ visit Denies contractions, leaking of fluid, or vaginal bleeding. Noted good movement Denies headache, blurry vision, RUQ or epigastric pain. Patient desires [place] delivery, has not met any the delivering providers Problem list reviewed BP 110/64 | Temp 36.6 C (97.9 F) | Wt 62.9 kg (138 lb 9.6 oz) | LMP (LMP Unknown) | BMI 25.35 kg/m | BSA 1.66 m FH: 33 FHT: 145 Plan: Labor and preeclampsia warnings reviewed Flu vaccine declined RSV vaccine (32-36 6/7) declined Offer visits with delivering providers at [facility], patient politely declines RTC 2 weeks V Caio BERRY PhD documented in this encounter Nursing Notes * Holli Mcintyre LPN - 12/16/2023 2:36 PM EDT Chief Complaint Patient presents with Return Visit 32w6d Pt denied having any concerns at today's visit. Holli Mcintyre LPN 12/16/2023 2:36 PM documented in this encounter Plan of Treatment Upcoming Encounters Date Type Department Care Team (Late st Contact Info) Description 12/30/2023 10:45 AM EDT Office Visit Gynecology/Obstetrics, [place] [address] [phone] Snow Kearney MD [address] [place] [address] Health Maintenance Due Date Last Done Comments Hepatitis B Vaccine (1 of 3 - 19+ 3-dose series) 2009 HPV/Co-Test 01/27/2020 Cervical Cancer Screening 08/25/2023 Pap Smear 08/25/2023 08/24/2020, 03/27/2017, 12/17/2012 COVID-19 Vaccine (1 - 2022-2 4 season) 2023 Influenza Vaccine (FLU shot) (#1) [...] as of this encounter Visit Diagnoses Diagnosis 32 weeks gestation of - Primary state, incidental Antepartum anemia complicating Anemia, antepartum Supervision of other normal , antepartum documented in this encounter Care Teams Automatic Pinsetter Mechanic Relationship Specialty Start Date End Date Belinda Malloy CRNP [address] [place] [place] [address] PCP - General Nurse Practitioner 05/10/22 documented as of this encounter"
--- OUTSIDE RECORDS SUMMARY | 2024-02-10 08:02 | External Medical Summary | Summary of Care ---
Author Name Unknown Organization [facility] Address [address] [place] [address] Phone [phone] Care Team Providers Care Museum Specialist Name Role Phone Belinda Malloy Primary Care Provider +1- [phone] Encounter Details Date Type Department Care Team (Late st Contact Info) Description 11/19/2023 Telephone Gynecology/Obstetrics, [place] [address] [place] [address] Niecy Mendes CNM [address] [place] [address] Allergies Active Allergy Reactions Criticality [...] have money to get more. Patient declined [place] Depression Scale Answer Date Recorded [place] Depression Scale Total 8 07/14/2023 The thought [...] encounter Miscellaneous Notes * Telephone Encounter - Niecy Mendes CNM [...] 12/02/2023 1:00 PM EDT Office Visit Gynecology/Obstetrics, [place] [address] [place] [address] Vanessa Wiggins PA-C [address] [place] [address] Health Maintenance Due Date Last Done Comments [...] filedocumented as of this encounter Care Teams Museum Specialist Relationship Specialty Start Date End Date Belinda Malloy CRNP [address] [place] [address] PCP - General Nurse Practitioner 05/10/22 documented as of this encounter
--- OUTSIDE RECORDS SUMMARY | 2024-02-10 08:03 | External Medical Summary ---
Author Name Unknown Address Unknown Organization [id number]:LABORATORY [facility] - [address] [place] [address] [place] [address] Laboratory Report Ordering Provider Test Date Status AMADAGALE 11/14/2023 13:39:00 Final Rheumatoid factor at a level above 50 IU/mL may lead to an overestimation of the D-dimer level. A normal D-dimer result (<0.50 ug/mL FEU) has a negative predictive value of approximately 95% for the exclusion of acute pulmonary embolism (PE) or deep vein thrombosis when there is low or moderate pretest PE probability. Increased D-dimer values are abnormal but do not indicate a specific disease state and the D-dimer increase does not definitively correlate with clinical severity of disease. Observation Date Value Abnormality Reference (Units ) Status Fibrin D-dimer FEU [Mass/volume] in Platelet poor plasma by Immunoassay 11/14/2023 13:39:00 2.67 Above high normal <0.50 (ug/mL FEU) Final Performing Location [facility] [address] [facility] [address]
--- OUTSIDE RECORDS SUMMARY | 2024-02-10 08:03 | External Medical Summary ---
Author Name Unknown Address Unknown Organization [id number]:[facility]ORY [facility] [place] - [address] [facility] [address] Laboratory Report Ordering Provider Test Date Status JUANCHO MALDONADO 11/18/2023 16:36:38 Final Observation Date Value Abnormality Reference (Units ) Status Bacterial vaginosis [Interpretation] in Vaginal fluid Qualitative 11/18/2023 16:36:38 Negative Negative Final Negative for Bacterial Vagin osis. Correlate results with other clinical findings. Margaret sp DNA [Presence] in Vaginal fluid by Probe 11/18/2023 16:36:38 Positive Abnormal Negative Final Margaret species group RNA de tected. Correlate results with other clinical findings. Margaret glabrata RNA [Presen ce] in Vaginal fluid by MAYA with probe detection 11/18/2023 16:36:38 Negative Negative Final No Margaret glabrata RNA dete cted. Correlate results with other clinical findings. Trichomonas vaginalis DNA [P resence] in Vaginal fluid by Probe 11/18/2023 16:36:38 Negative Negative Final No Trichomonas vaginalis RNA detected. Performing Location LABORATORY [facility] - [address] [facility] [address]
--- OUTSIDE RECORDS SUMMARY | 2024-02-10 08:03 | External Medical Summary ---
Author Name Unknown Address Unknown Organization [id number]:LABORATORY [facility] [place] - [address] [facility] [address] Laboratory Report Ordering Provider Test Date Status KARL HERNÁNDEZ 11/18/2023 16:04:24 Final Observation Date Value Abnormality Reference (Units ) Status TSH 11/18/2023 16:04:24 1.49 0.27-4.20 (uIU/mL) Final Performing Location LABORATORY [facility] - [address] [facility] [address]
--- OUTSIDE RECORDS SUMMARY | 2024-02-10 08:03 | External Medical Summary ---
Author Name Unknown Address Unknown Organization K01:[facility] [place] [facility] [place] [address] [place] [address] Laboratory Report Ordering Provider Test Date Status KARL HERNÁNDEZ 11/18/2023 16:04:24 Final Observation Date Value Abnormality Reference (Units ) Status Glucose [Moles/volume] in Serum or Plasma --1 hour post 50 g glucose PO 11/18/2023 16:04:24 100 70-129 (mg/dL) Final Performing Location [facility] [place] [address] [place] [address]
--- OUTSIDE RECORDS SUMMARY | 2024-02-10 08:03 | External Medical Summary ---
Author Name Unknown Address Unknown Organization [id number]:LABORATORY [facility] - [address] [place] [address] Laboratory Report Ordering Provider Test Date Status BALJINDER YBARAR 11/14/2023 13:40:00 Final Collect NOW Observation Date Value Abnormality Reference (Units ) Status Troponin T 11/14/2023 13:40:00 <6 <=14 (ng/ L) Final Performing Location LABORATORY [facility] - [address] [place] [address]
--- OUTSIDE RECORDS SUMMARY | 2024-02-10 08:03 | External Medical Summary ---
Author Name Unknown Address Unknown Organization K01:LABORATORY [facility] [place] - [address] [facility] [address] Laboratory Report Ordering Provider Test Date Status KARL HERNÁNDEZ 11/18/2023 16:04:24 Final Observation Date Value Abnormality Reference (Units ) Status SYNC LEUKOCYTES IN BLOOD BY AUTOMATED COUNT 11/18/2023 16:04:24 9.00 4.00-10.80 (K/uL) Final Segs 11/18/2023 16:04:24 74.2 40.0-75.0 (%) Final Lymphs % 11/18/2023 16:04:24 16.2 Below low normal 18.0-42.0 (%) Final Monos 11/18/2023 16:04:24 6.8 1.0-11.0 (%) Final Eosinophils 11/18/2023 16:04:24 1.6 0.0-6.0 (%) Final Basos 11/18/2023 16:04:24 0.3 0.0-2.0 (%) Final Immature Granulocyte, Percent 11/18/2023 16:04:24 0.9 0.0-2.0 (%) Final Absolute Segs 11/18/2023 16:04:24 6.68 1.80-7.70 (K/uL) Final Lymphs, absolute 11/18/2023 16:04:24 1.46 1.00-4.80 (K/ul) Final Monos, Abs 11/18/2023 16:04:24 0.61 0.00-1.10 (K/uL) Final Eos, Abs 11/18/2023 16:04:24 0.14 0.00-0.70 (K/uL) Final Basos, Abs 11/18/2023 16:04:24 0.03 0.00-0.20 (K/uL) Final Immature Granulocytes, Number 11/18/2023 16:04:24 0.08 0.00-0.20 (K/uL) Final Performing Location LABORATORY [facility] [place] - [address] [facility] [address]
--- OUTSIDE RECORDS SUMMARY | 2024-02-10 08:03 | External Medical Summary ---
Author Name Unknown Address Unknown Organization K1F:LABORATORY [facility] - [address] [facility] [address] Laboratory Report Ordering Provider Test Date Status BALJINDER YBARRA 11/14/2023 13:40:00 Final hCG can serve as a screening assay for . However, early may not give a positive hCG test result. In addition, some non- women may have a hCG result slightly higher than the reference limit. Careful interpretation of the hCG with clinical history is required to determine whether the patient may be . Observation Date Value Abnormality Reference (Units ) Status Choriogonadotropin.in tact+Beta subunit [Units/volume] in Serum or Plasma 11/14/2023 13:40:00 [address].0 Above high normal <=1.0 (mIU/mL) Final Performing Location LABOR[facility]ORY [facility] - [address] [facility] [place] [address]
--- OUTSIDE RECORDS SUMMARY | 2024-02-10 08:03 | External Medical Summary | Summary of Care ---
Author Name Unknown Organization [facility] Address [address] [place] [address] Phone [phone] Care Team Providers Care Financial Aid Name Role Phone Belinda Malloy Primary Care Provider +1- [phone] Reason for Visit * Reason Onset Date Comments Advice 07/25/2023 Getting fluids. Encounter Details Date Type Department Care Team ([facility] st Contact Info) Description 07/25/2023 Telephone [facility] [address] [place] [address] Belinda Malloy CRNP [address] [place] [address] Advice (Getting fluids.) Allergies Active Allergy Reactions Criticality Noted Date Comments Amoxicillin 08/15/2004 hives Cefaclor 08/15/2004 hives documented as of this encounter (statuses as of 10/24/2023) Medications Medication Sig Dispensed Refills Start Date End Date Status 27-0.8 MG Oral Tablet Take 1 Tablet by mouth daily at noon. Active documented as of this encounter (statuses as of 10/24/2023) Active Problems Problem Noted Date Diagnosed Date [...] as of this encounter (statuses as of 10/24/2023) Immunizations Name Administration Dates Next Due TDAP [...] have money to get more. Patient declined [place] Depression Scale Answer Date Recorded [place] Depression Scale Total 8 07/14/2023 The thought [...] encounter Miscellaneous Notes * Telephone Encounter - Sha Cleaning [facility]SA - 07/25/2023 10:34 AM EDT Patient is calling to speak with someone regarding getting fluids. documented in this encounter Plan of Treatment Upcoming Encounters Date Type Department Care Team (Late st Contact Info) Description 11/03/2023 10:30 AM EDT Office Visit Gynecology/Obstetrics, [place] [address] [phone] Vanessa Wiggins PA-C [address] [phone] Health Maintenance Due Date Last Done Comments [...] filedocumented as of this encounter Care Teams Financial Aid Relationship Specialty Start Date End Date Belinda Malloy CRNP [address] [facility] [address] [place] [address] PCP - General Nurse Practitioner 05/10/22 documented as of this encounter
--- OUTSIDE RECORDS SUMMARY | 2024-02-10 08:03 | External Medical Summary ---
Author Name Unknown Address Unknown Organization [id number]:LABORATORY [facility] [place] - [address] [facility] [address] Laboratory Report Ordering Provider Test Date Status KARL HERNÁNDEZ 11/18/2023 16:04:24 Final Observation Date Value Abnormality Reference (Units ) Status Treponema pallidum Ab [Presence] in Serum by Immunoassay 11/18/2023 16:04:24 Nonreactive Nonreactive Final No serologic evidence of syp hilis. No additional testing clinicially indicated at this time. Consider repeat testing in 2-4 weeks if acute or primary syphilis is suspected. Performing Location LABORATORY [facility] - [address] [facility] [address]
--- OUTSIDE RECORDS SUMMARY | 2024-02-10 08:03 | External Medical Summary ---
Author Name Unknown Address Unknown Organization [id number]:LABORATORY [facility] - [address] [facility] [address] [place] [address] Laboratory Report Ordering Provider Test Date Status BALJINDER YBARRA 11/14/2023 16:38:03 Final Observation Date Value Abnormality Reference (Units ) Status Color of Urine by Auto 11/14/2023 16:38:03 Yellow Light Yellow, Yellow, Dark Yellow Final Clarity, Urine 11/14/2023 16:38:03 Slightly Cloudy Abnormal Clear Final Glucose [Mass/volume] in Urine by Automated test strip 11/14/2023 16:38:03 Negative Negative (mg/dL) Final Bilirubin.total [Presence] in Urine by Automated test strip 11/14/2023 16:38:03 Negative Negative Final Ketones [Mass/volume] in Urine by Automated test strip 11/14/2023 16:38:03 >=80 Abnormal Negative (mg/dL) Final Specific gravity, Urine 11/14/2023 16:38:03 1.019 1.003-1.030 Final Hemoglobin [Presence] in Urine by Automated test strip 11/14/2023 16:38:03 Trace Abnormal Negative Final pH, Urine 11/14/2023 16:38:03 6.5 5.0-7.5 (Units) Final Protein [Mass/volume] in Urine by Automated test strip 11/14/2023 16:38:03 Negative Negative (mg/dL) Final Urobilinogen [Mass/volume] in Urine by Automated test strip 11/14/2023 16:38:03 1.0 0.2, 1.0 (mg/dL) Final Nitrite [Presence] in Urine by Automated test strip 11/14/2023 16:38:03 Negative Negative Final Leukocyte esterase [Presence] in Urine by Automated test strip 11/14/2023 16:38:03 Negative Negative Final RBC, Urine 11/14/2023 16:38:03 3-5 Abnormal 0-2 (/HPF) Final WBC, Urine 11/14/2023 16:38:03 0-2 0-2 (/HPF) Final Bacteria [#/area] in Urine sediment by Microscopy high power field 11/14/2023 16:38:03 >200 Abnormal 0-25 (/HPF) Final Epithelial cells.squamous [#/area] in Urine sediment by Microscopy high power field 11/14/2023 16:38:03 Many Abnormal None (/HPF) Final Mucus, Urine 11/14/2023 16:38:03 Many Abnormal None (/HPF) Final Performing Location LABORATORY [facility] - [address] [place], [place] [address]. [facility] [address]
--- OUTSIDE RECORDS SUMMARY | 2024-02-10 08:03 | External Medical Summary ---
Author Name Unknown Address Unknown Organization K01:LAB[facility]ATORY [facility] [place] - [address] [place] [address] Laboratory Report Ordering Provider Test Date Status KARL HERNÁNDEZ 11/18/2023 16:04:24 Final Observation Date Value Abnormality Reference (Units ) Status Iron 11/18/2023 16:04:24 61 33-151 (ug/dL) Final Iron-binding capacity 11/18/2023 16:04:24 496 Above high normal 250-425 (ug/dL) Final Transferrin Sat % 11/18/2023 16:04:24 12 Below low normal 15-55 (%) Final Performing Location LABORATORY [facility] [place] - [address] [place] [address]
--- OUTSIDE RECORDS SUMMARY | 2024-02-10 08:03 | External Medical Summary ---
Author Name Unknown Address Unknown Organization K1F:[facility] - [address] [facility] [place] [place] [address] Laboratory Report Ordering Provider Test Date Status BALJINDER YBARRA 11/14/2023 13:39:00 Final Observation Date Value Abnormality Reference (Units ) Status BUN 11/14/2023 13:39:00 8 6-20 (mg/dL) Final Creatinine 11/14/2023 13:39:00 0.6 0.5-1.0 (mg/dL) Final Glomerular filtration rate/1.73 sq M.predicted [Volume Rate/Area] in Serum, Plasma or Blood by Creatinine-based formula (CKD-EPI) 11/14/2023 13:39:00 >90 >=60 (mL/min) Final eGFR is calculated based on the CKD-EPI 2020 equation. Sodium 11/14/2023 13:39:00 136 135-146 (m mol/L) Final Potassium 11/14/2023 13:39:00 3.8 3.5-5.1 (m mol/L) Final Cl 11/14/2023 13:39:00 103 98-107 (mm ol/L) Final CO2 11/14/2023 13:39:00 22 22-32 (mmo l/L) Final Anion gap 11/14/2023 13:39:00 11 7-15 (mmol /L) Final Glucose 11/14/2023 13:39:00 82 70-120 (mg /dL) Final Albumin 11/14/2023 13:39:00 3.6 Below low normal 3.8 -5.0 (g/dL) Final AST (Aspartate aminotransferase) 11/14/2023 13:39:00 12 10-35 (U/L) Fin al Alk Phos 11/14/2023 13:39:00 105 35-130 (U/ L) Final Bilirubin, Total 11/14/2023 13:39:00 0.8 <=1 .2 (mg/dL) Final Calcium 11/14/2023 13:39:00 9.0 8.4-10.2 ( mg/dL) Final Protein 11/14/2023 13:39:00 6.1 6.0-8.3 (g /dL) Final ALT (Alanine aminotransferase) 11/14/2023 13:39:00 7 Below low normal 10-35 (U/L) Final Performing Location LABORATORY [facility] - [address] [place] [address]
--- OUTSIDE RECORDS SUMMARY | 2024-02-10 08:03 | External Medical Summary ---
Author Name Unknown Address Unknown Organization K01:[facility] [place] [address] [facility] [address] Laboratory Report Ordering Provider Test Date Status KARL HERNÁNDEZ 11/18/2023 16:04:24 Final Observation Date Value Abnormality Reference (Units ) Status Folic Acid 11/18/2023 16:04:24 12.8 >4.5 (ng/ mL) Final Performing Location LAB[facility]ATORY [facility] - [address] [facility] [address]
--- OUTSIDE RECORDS SUMMARY | 2024-02-10 08:03 | External Medical Summary | Summary of Care ---
Author Name Unknown Organization [facility] Address [address] [place] [address] Phone [phone] Care Team Providers Care Cnc Machinist Name Role Phone Belinda Malloy Primary Care Provider +1- [phone] Reason for Visit * Reason Comments Return Visit 26w5d Encounter Details Date Type Department Care Team (Late st Contact Info) Description 11/03/2023 10:30 AM EDT [place] [address], [place] [phone] Vanessa Wiggins PA-C [address] [place] [address] 26 weeks gestation of * Allergies Active Allergy Reactions Criticality Noted Date Comments Amoxicillin 08/15/2004 hives Cefaclor 08/15/2004 hives documented as of this encounter (statuses as of 11/03/2023) Medications Medication Sig Dispensed Refills Start Date End Date Status 27-0.8 MG Oral Tablet Take 1 Tablet by mouth daily at noon. Active Metoclopramide HCl 5 MG Oral Tablet (Reglan) Take 2 Tablets by mouth every 8 hours as needed for Nausea. 20 Tablet 08/15/2023 Active documented as of this encounter (statuses as of 11/03/2023) Active Problems Problem Noted Date Diagnosed Date [...] as of this encounter (statuses as of 11/03/2023) Immunizations Name Administration Dates Next Due TDAP [...] have money to get more. Patient declined [place] Depression Scale Answer Date Recorded [place] Depression Scale Total 8 07/14/2023 The thought [...] Sign Reading Time Taken Comments Blood Pressure 122/62 11/03/2023 10:31 AM EDT Pulse - - Temperature 36.9 C (98.4 F) 11/03/2023 10:31 AM E DT Respiratory Rate - - Oxygen Saturation - - Inhaled Oxygen Concentration - - Weight 60.3 kg (133 lb) 11/03/2023 10:31 AM EDT Height - - Body Mass Index 24.88 07/14/2023 2:37 PM EDT documented in this encounter Progress Notes * Vanessa Wiggins PA-C - 11/03/2023 10:33 AM EDT Cherie Henderson is a 33 year old female here for her routine OB appointment at 26w5d Her Estimated Date of Delivery: 02/04/24 REVIEW OF SYSTEMS: She affirms movement. Denies vaginal bleeding, LOF, contractions, N/V. Ongoing headaches, unchanged. No vision changes. She is struggling with constipation. Improves with dietary changes (increasing veggies). PHYSICAL EXAM: Filed Vitals: 11/03/23 1031 BP: 122/62 Temp: 36.9 C (98.4 F) TempSrc: Tympanic Weight: 60.3 kg (133 lb) +FHT 140s Fundal height 27 ASSESSMENT/PLAN: 26 weeks gestation of (Primary) Follow Up: Return in about 2 weeks (around 11/17/2023) for LUZ. | For: LUZ Supervision of - we reviewed and ordered GTT and CBC for patient to complete between now and her next visit - reviewed recommendation for tdap vaccine at next visit - RTO in 2 weeks Vanessa Wiggins PA-C documented in this encounter Nursing Notes * Jenny Echavarria CMA - 11/03/2023 10:31 AM EDT Chief Complaint Patient presents with Return Visit 26w5d Pt agreeable to completing labs before next appointment documented in this encounter Plan of Treatment Upcoming Encounters Date Type Department Care Team (Late st Contact Info) Description 11/18/2023 3:30 PM EDT Office Visit Gynecology/Obstetrics, [place] [address] [address] Vashti Lora PA-C [address] [address] Health Maintenance Due Date Last Done Comments [...] as of this encounter Visit Diagnoses Diagnosis 26 weeks gestation of - Primary state, incidental documented in this encounter Care Teams Cnc Machinist Relationship Specialty Start Date End Date Belinda Mallyo CRNP [address] [facility] [address] [place] [phone] PCP - General Nurse Practitioner 05/10/22 documented as of this encounter"
--- OUTSIDE RECORDS SUMMARY | 2024-02-10 08:03 | External Medical Summary ---
Author Name Unknown Address Unknown Organization K01:LABORATORY [facility] [place] - [address] [place] [address] Laboratory Report Ordering Provider Test Date Status KARL HERNÁNDEZ 11/18/2023 16:04:24 Final Observation Date Value Abnormality Reference (Units ) Status Vitamin B12 11/18/2023 16:04:24 [phone] (pg/mL) Final Performing Location LABORATORY [facility] - [address] [place] [address]
--- OUTSIDE RECORDS SUMMARY | 2024-02-10 08:03 | External Medical Summary | Summary of Care ---
Author Name Unknown Organization [facility] Address [address] [place] [address] Phone [phone] Care Team Providers Care Jewelry Dipper Name Role Phone Belinda Malloy Primary Care Provider [phone]- [phone] Reason for Visit * Reason Comments Chest Pain * Auth/Cert Specialty Diagnoses / Procedures Referred By Contbhavana t Referred To Contact [facility] [address] [place] [address] Phone: [phone] Emergency Medicine [facility] [address] [place] [address] Referral ID Status Reason Start Date Expiration Date Visits Re quested Visits Authorized [id number] Encounter Details Date Type Department Care Team (Late st Contact Info) Description 11/14/2023 2:21 PM EDT - 11/14/2023 4:41 PM EDT Emergency [facility] ([facility]) [address] [place] [address] Yobani Malik MD [address] [place], [place] [id number] Chest pain, unspecified type (Primary Dx); Chest pain Discharge Disposition: Home - Self Care Allergies Active Allergy Reactions Criticality Noted Date Comments Amoxicillin 08/15/2004 hives Cefaclor 08/15/2004 hives documented as of this encounter (statuses as of 11/15/2023) Medications Medication Sig Dispensed Refills Start Date End Date Status 27-0.8 MG Oral Tablet Take 1 Tablet by mouth daily at noon. Active Metoclopramide HCl 5 MG Oral Tablet (Reglan) Take 2 Tablets by mouth every 8 hours as needed for Nausea. 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 Patient declined [place] Depression Scale Answer Date Recorded [place] Depression Scale Total 8 07/14/2023 The thought [...] Sign Reading Time Taken Comments Blood Pressure 91/66 11/14/2023 4:00 PM EDT Pulse 67 11/14/2023 4:00 PM EDT Temperature 36.1 C (97 F) 11/14/2023 11:36 AM EDT Respiratory Rate 15 11/14/2023 4:00 PM EDT Oxygen Saturation 100% 11/14/2023 11:36 AM EDT Inhaled Oxygen Concentration - - Weight 60.8 kg (134 lb) 11/14/2023 11:36 AM EDT Height 157.5 cm (5' 2") 11/14/2023 11:36 AM EDT Body Mass Index 24.51 11/14/2023 11:36 AM EDT documented in this encounter Discharge Instructions * Discharge Instructions* Yobani Malik MD - 11/14/2023 4:31 PM EDT Please follow-up with your regular doctor the next available appointment for ER follow-up. Please return to the emergency department in the meantime for any new or worsening symptoms otherwise. documented in this encounter Nursing Notes * Ceasar Hilton RN - 11/14/2023 1:34 PM EDT Emergency chest pain protocol used, chest XR 2 view discontinued due to pt being 7 months . documented in this encounter ED Notes * Yobani Malik MD - 11/14/2023 2:55 PM EDT HISTORY OF PRESENT ILLNESS Cherie Henderson is a 33 year old female who presents to the ED for evaluation of Chest Pain. The patient was seen at 11/14/23 1427. Patient presents accompanied by her significant other due to chest pain. She states that this morning when she woke up she had sharp left-sided chest pain. It has been intermittent now over the past several hours. She has been feeling progressively more shortness of breath over the , but has not noticedany major changes. Denies leg swelling. Denies cough, productive sputum, hemoptysis, fevers. Denies prior history of heart problems, venous thromboembolism. She is approximately 28 weeks and 2 days estimated gestational age, . Allergies: Amoxicillin, Ceclor Review of Systems Respiratory: Positive for shortness of breath. Cardiovascular: Positive for chest pain. The patient's allergies, past history, and medications were reviewed. PHYSICAL EXAM Initial Vitals (see all): BP 108/64 | Pulse 69 | Resp 22 | Temp 97 | O2 100 %, Room Air, None | Weight 60.78 kg | Height 157.5 cm | BMI 24.51 kg/m2 Initial Pain Assessment (see all): 3 (mild pain)/10, location: central chest ([facility] Scale 0-10) Physical Exam Vitals and nursing note reviewed. Constitutional: General: She is not in acute distress. Appearance: Normal appearance. She is well-developed. She is not diaphoretic. HENT: Head: Normocephalic and atraumatic. Nose: Nose normal. Mouth/Throat: Mouth: Mucous membranes are moist. Pharynx: Oropharynx is clear. Eyes: General: No scleral icterus. Extraocular Movements: Extraocular movements intact. Conjunctiva/sclera: Conjunctivae normal. Pupils: Pupils are equal, round, and reactive to light. Neck: Thyroid: No thyromegaly. Vascular: No JVD. Cardiovascular: Rate and Rhythm: Normal rate and regular rhythm. Heart sounds: Normal heart sounds. No murmur heard. No friction rub. No gallop. Pulmonary: Effort: Pulmonary effort is normal. No respiratory distress. Breath sounds: Normal breath sounds. No wheezing or rales. Chest: Chest wall: No tenderness. Abdominal: General: Bowel sounds are normal. There is no distension. Palpations: Abdomen is soft. There is no mass. Tenderness: There is no abdominal tenderness. There is no guarding or rebound. Musculoskeletal: General: Normal range of motion. Cervical back: Normal range of motion and neck supple. No muscular tenderness. Right lower leg: No edema. Left lower leg: No edema. Skin: General: Skin is warm and dry. Neurological: General: No focal deficit present. Mental Status: She is alert and oriented to person, place, and time. Psychiatric: Mood and Affect: Mood normal. Behavior: Behavior normal. PROCEDURES AND TREATMENTS ED Orders | ED Results MEDICAL DECISION MAKING Nursing notes and vital signs were reviewed. ED Course as of 11/14/232158Nov 14, 2023 142 My interpretation of the EKG shows rate 70, normal sinus rhythm, normal axis, normal intervals, no ST depression or elevation noted [MM] 1427 BP: 108/64 [MM] 1427 Pulse: 69 [MM] 1427 Resp: 22 [MM] 1427 SpO2: 100 % [MM] 1427 Temp: 36.1 C (97 F) [MM] 1427 HGB(!): 10.8 Decreased from baseline [MM] 1428 ED Triage Notes Pt arrives to ED with complaints of intermittent chest pain/pressure that started this morning whenshe woke up. States this has been ongoing with her . Reports this morning she then developed dizziness/lightheadedness and had an episode of vomiting. Pain is worse with movement. 7 months . [MM] 1531 D-Dimer(!): 2.67 [MM] 1531 Troponin T, High Sensitivity: <6 [MM] 1631 IMPRESSION: No acute findings. [MM] ED Course User Index [MM] Yobani Malik MD Patient here with left-sided chest pain today. Described as sharp. Associated with some increasing shortness of breath over time. Physical examination and vital signs as above. Lab work grossly unremarkable today. D-dimer was elevated, CT negative for PE. EKG does not appear to show any acute ischemic change or dysrhythmia. Patient discharged home in stable condition. Advised OB follow-up. Return precautions given. Amount and/or Complexity of Data Reviewed Labs: ordered. Decision-making details documented in ED Course. Radiology: ordered. ECG/medicine tests: ordered. Risk Prescription drug management. Clinical Impressions Chest pain, unspecified type Disposition Discharged. The patient's condition at disposition was: stable. Yobani Malik * Elsy Preston RN - 11/14/2023 12:07 PM EDT Pt arrives to ED with complaints of intermittent chest pain/pressure that started this morning whenshe woke up. States this has been ongoing with her . Reports this morning she then developed dizziness/lightheadedness and had an episode of vomiting. Pain is worse with movement. 7 months . documented in this encounter Miscellaneous Notes * ED Supervisor Coremaker Note - Sabrina Mcintyre RN - 11/14/2023 4:41 PM EDT Pt verbalized understanding of d/c instructions. PIV removed. Ambulated from ED with steady gait * ED Supervisor Coremaker Note - Sully Marr RN - 11/14/2023 2:58 PM EDT Patient presents to the ED with intermittent chest pain. Patient states that she woke up with chestpain, which she has been having for the past couple days. Patient states that today however she developed the chest pain and got very dizzy/lightheaded and had an episode of emesis. Patient states that she is 7 months . This is patient's 2nd . Patient does follow with OBGYN and called them today and they referred patient to ED. Patient states that chest pain feels sharp when it occurs and is located in the center of her chest. Patient states that she does get SOB with chest pain occurs and it hurts to take a deep breath. documented in this encounter Plan of Treatment Upcoming Encounters Date Type Department Care Team (Late st Contact Info) Description 11/18/2023 3:30 PM EDT Office Visit Gynecology/Obstetrics, [place] [address] [address] Vashti Lora PA-C [address] [phone] Health Maintenance Due Date Last Done Comments [...] Procedure Name Priority Date/Time Associated Diagnosis Comments EXTRA URINE HEARD TOP Routine 11/14/2023 4:38 PM EDT EXTRA TUBES Routine 11/14/2023 4:38 PM EDT URINALYSIS WITH MICROSCOPIC EXAM STAT 11/14/2023 4:[address] PULMONARY EMBOLUS W CONTRAST STAT 11/14/2023 4:05 PM EDT TROPONIN T, HIGH SENSITIVITY STAT 11/14/2023 2:46 PM EDT DIFFERENTIAL, AUTOMATED STAT 11/14/2023 1:40 PM EDT TROPONIN T, HIGH SENSITIVITY STAT 11/14/2023 1:40 PM EDT BETA-HCG, QUANTITATIVE STAT 1:40 PM EDT CBC STAT 11/14/2023 1:40 PM EDT CBC STAT 11/14/2023 1:40 PM EDT EXTRA LIGHT BLUE TOP STAT 11/14/2023 1:39 PM EDT COMPREHENSIVE METABOLIC PANEL STAT 11/14/2023 1:39 PM EDT D-DIMER Add-on 11/14/2023 1:39 PM EDT documented in this encounter Results * EXTRA URINE HEARD TOP (11/14/2023 4:38 PM EDT) Urine Urine specimen / Unknown 11/14/2023 4:38 PM EDT 11/14/2023 4:50 PM EDT Trevor King PA-C LAB URINE ORDERA BLES [facility] [address] [place] [address] * (ABNORMAL) URINALYSIS WITH MICROSCOPIC EXAM (11/14/2023 4:38 PM EDT) Color, Urine Yellow Light Yellow, Yellow, Dark Yellow 11/14/2023 5:27 PM EDT LABORATORY [facility] Clarity, Urine Slightly Cloudy(A) Clear 11/14/2023 5:27 PM EDT LABORATORY [facility] Glucose, Urine Negative Negative mg/dL 11/14/2023 5:27 PM EDT LABORATORY GL Bilirubin, Urine Negative Negative 11/14/2023 5:27 PM EDT LABORATORY [facility] Ketone, Urine >=80(A) Negative mg/dL 11/14/2023 5:27 PM EDT LABORATORY GL Specific [place], Urine 1.019 1.003 - 1.030 11/14/2023 5:27 PM EDT LABORATORY [facility] Blood, Urine Trace(A) Negative 11/14/2023 5:27 PM EDT LABORATORY GL pH, Urine 6.5 5.0 - 7.5 Units 11/14/2023 5:27 PM EDT LABORATORY [facility] Protein, Urine Negative Negative mg/dL 11/14/2023 5:27 PM EDT LABORATORY GL Urobilinogen, Urine 1.0 0.2, 1.0 mg/dL 11/14/2023 5:27 PM EDT LABORATORY [facility] Nitrite, Urine Negative Negative 11/14/2023 5:27 PM EDT LABORATORY [facility] Esterase, Urine Negative Negative 11/14/2023 5:27 PM EDT LABORATORY GL RBC, Urine 3-5(A) 0 - 2 /HPF 11/14/2023 5:27 PM EDT LABORATORY [facility] WBC, Urine 0-2 0 - 2 /HPF 11/14/2023 5:27 PM EDT LABORATORY [facility] Bacteria, Urine >200(A) 0 - 25 /HPF 11/14/2023 5:27 PM EDT LABORATORY [facility] Squamous Epithelial Cells, Urine Many(A) None /HPF 11/14/2023 5:27 PM EDT LABORATORY [facility] Mucus, Urine Many(A) None /HPF 11/14/2023 5:27 PM EDT LABORATORY [facility] Urine Urine specimen obtained by clean catch procedure / Unknown Non-blood Collection / Unknown 11/14/2023 4:38 PM EDT 11/14/2023 4:42 PM EDT Yobani Malik MD LAB URINE ORDERABLES LABORATORY [facility] [address] [place] [address] * CT PULMONARY EMBOLUS W CONTRAST (11/14/2023 4:05 PM EDT) Anatomical Region Laterality Modality Chest, Cardio, Body Computed Brown ography 11/14/2023 3:55 PM EDT Impressions 11/14/2023 4:23 PM EDT IMPRESSION: No acute findings. THIS DOCUMENT HAS BEEN ELECTRONICALLY SIGNED BY JUAN C RODRIGUES MD Narrative 11/14/2023 4:23 PM EDT PROCEDURE INFORMATION: Exam: CTA Chest With Contrast Exam date and time: 11/14/2023 3:55 PM Age: 33 years old Clinical indication: Pain; Shortness of breath; Chest pressure; Additional info: Chest pain, shortness of breath, elevated d-dimer, approximately 28 weeks estimated gestational age. Concern for pe. TECHNIQUE: Imaging protocol: Computed tomographic angiography of the chest with contrast. Exam focused on the arteries. 3D rendering (Not supervised by radiologist): MIP and/or 3D reconstructed images were created by the technologist. Radiation optimization: All CT scans at this facility use at least one of these dose optimization techniques: automated exposure control; mA and/or kV adjustment per patient size (includes targeted exams where dose is matched to clinical indication); or iterative reconstruction. Contrast material: ISOVUE 370; Contrast volume: 75 ml; Contrast route: INTRAVENOUS (IV); COMPARISON: CT ABD/PELVIS WO IV/ORAL CONTRAST 03/07/2021 10:38 AM FINDINGS: Pulmonary arteries: Normal. No pulmonary emboli. Aorta: Unremarkable. No aortic aneurysm. No aortic dissection. Lungs: Unremarkable. No consolidation. No masses. Pleural spaces: Unremarkable. No pneumothorax. No pleural effusion. Heart: Unremarkable. No cardiomegaly. No pericardial effusion. Lymph nodes: Unremarkable. No enlarged lymph nodes. Bones/joints: Unremarkable. No acute fracture. Soft tissues: Unremarkable. Procedure Note Juan C Rodrigues MD - 11/14/2023 PROCEDURE INFORMATION: Exam: CTA Chest With Contrast Exam date and time: 11/14/2023 3:55 PM Age: 33 years old Clinical indication: Pain; Shortness of breath; Chest pressure; Additional info: Chest pain, shortness of breath, elevated d-dimer, approximately 28weeks estimated gestational age. Concern for pe. TECHNIQUE: Imaging protocol: Computed tomographic angiography of the chest withcontrast. Exam focused on the arteries. 3D rendering (Not supervised by radiologist): MIP and/or 3D reconstructed images were created by the technologist. Radiation optimization: All CT scans at this facility use at least one ofthese dose optimization techniques: automated exposure control; mA and/or kV adjustment per patient size (includes targeted exams where dose is matchedto clinical indication); or iterative reconstruction. Contrast material: ISOVUE 370; Contrast volume: 75 ml; Contrast route: INTRAVENOUS (IV); COMPARISON: CT ABD/PELVIS WO IV/ORAL CONTRAST 03/07/2021 10:38 AM FINDINGS: Pulmonary arteries: Normal. No pulmonary emboli. Aorta: Unremarkable. No aortic aneurysm. No aortic dissection. Lungs: Unremarkable. No consolidation. No masses. Pleural spaces: Unremarkable. No pneumothorax. No pleural effusion. Heart: Unremarkable. No cardiomegaly. No pericardial effusion. Lymph nodes: Unremarkable. No enlarged lymph nodes. Bones/joints: Unremarkable. No acute fracture. Soft tissues: Unremarkable. IMPRESSION IMPRESSION: No acute findings. THIS DOCUMENT HAS BEEN ELECTRONICALLY SIGNED BY JUA NC RODRIGUES MD Yobani Malik MD RAD CT * TROPONIN T, HIGH SENSITIVITY (11/14/2023 2:46 PM EDT) Troponin T, High Sensitivity <6 <=14 ng/L 11/14/2023 3:16 PM EDT LABORATORY [facility] Blood Venous blood specimen / Unknown Venipuncture / Unknown 11/14/2023 2:46 PM EDT 11/14/2023 2:55 PM EDT Yobani Malik MD LAB BLOOD ORDERABLES [facility]AT[facility] [address] [place] [address] * DIFFERENTIAL, AUTOMATED (11/14/2023 1:40 PM EDT) Pathologist [facility] WBC 9.58 4.00 - 10.80 K/uL 11/14/2023 1:53 PM EDT LABORATORY [facility] Neutrophils % 74.2 40.0 - 75.0 % 11/14/2023 1:53 PM EDT LABORATORY [facility] Lymphocytes % 19.0 18.0 - 42.0 % 11/14/2023 1:53 PM EDT LAB[facility]ATORY [facility] Monocytes % 4.7 1.0 - 11.0 % 11/14/2023 1:53 PM EDT LAB[facility]ATORY [facility] Eosinophils % 0.9 0.0 - 6.0 % 11/14/2023 1:53 PM EDT LAB[facility]ATORY [facility] Basophils % 0.3 0.0 - 2.0 % 11/14/2023 1:53 PM EDT LAB[facility]ATORY [facility] Immature Granulocytes % 0.9 0.0 - 2.0 % 11/14/2023 1:53 PM EDT LAB[facility]ATORY [facility] Absolute Neutrophils 7.10 1.80 - 7.70 K/uL 11/14/2023 1:53 PM EDT LAB[facility]ATORY [facility] Absolute Lymphocytes 1.82 1.00 - 4.80 K/ul 11/14/2023 1:53 PM EDT LABORATORY [facility] Absolute Monocytes 0.45 0.00 - 1.10 K/uL 11/14/2023 1:53 PM EDT LABORATORY [facility] Absolute Eosinophils 0.09 0.00 - 0.70 K/uL 11/14/2023 1:53 PM EDT LABORATORY [facility] Absolute Basophils 0.03 0.00 - 0.20 K/uL 11/14/2023 1:53 PM EDT LABORATORY GL Absolute Immature Granulocytes 0.09 0.00 - 0.20 K/uL 11/14/2023 1:53 PM EDT LAB[facility]ATORY [facility] Blood Venous blood specimen / Unknown Venipuncture / Unknown 11/14/2023 1:40 PM EDT 11/14/2023 1:50 PM EDT Yobani Malik MD LAB BLOOD ORDERABLES LAB[facility]ATORY [facility] [address] [place] [address] * (ABNORMAL) CBC (11/14/2023 1:40 PM EDT) Pathologist [facility] WBC 9.58 4.00 - 10.80 K/uL 11/14/2023 1:53 PM EDT LABORATORY [facility] RBC 3.16 3.85 - 5.15 M/uL 11/14/2023 1:53 PM EDT LABORATORY [facility] HGB 10.8(L) 12.0 - 15.3 g/dL 11/14/2023 1:53 PM EDT LABORATORY [facility] HCT 31.0(L) 36.0 - 45.2 % 11/14/2023 1:53 PM EDT LABORATORY [facility] MCV 98.1 81.5 - 97.5 fL 11/14/2023 1:53 PM EDT LABORATORY [facility] MCH 34.2 27.0 - 34.0 pg 11/14/2023 1:53 PM EDT LABORATORY [facility] MCHC 34.8 32.0 - 36.0 g/dL 11/14/2023 1:53 PM EDT LABORATORY [facility] RDW 11.9 11.5 - 15.5 % 11/14/2023 1:53 PM EDT LABORATORY [facility] PLT 208 140 - 400 K/uL 11/14/2023 1:53 PM EDT LABORATORY [facility] MPV 9.2 6.6 - 11.1 fL 11/14/2023 1:53 PM EDT LAB[facility]ATORY [facility] nRBCs 0 <=0 /100 WBCs 11/14/2023 1:53 PM EDT LAB[facility]ATORY [facility] Blood Venous blood specimen / Unknown Venipuncture / Unknown 11/14/2023 1:40 PM EDT 11/14/2023 1:50 PM EDT Yobani Malik MD LAB BLOOD ORDERABLES Performing Organization Address City/[facility]/ZIP Co de Phone Number LABORATORY [address] [address] * (ABNORMAL) BETA-HCG, QUANTITATIVE (11/14/2023 1:40 PM EDT) [facility] Beta-HCG, Quantitative 20,403.0( H) <=1.0 mIU/mL 11/14/2023 2:48 PM EDT LABORATORY [facility] Blood Venous blood specimen / Unknown Venipuncture / Unknown 11/14/2023 1:40 PM EDT 11/14/2023 1:50 PM EDT Narrative LABORATORY [facility] - 11/14/2023 2:48 PM EDT hCG can serve as a screening assay for . However, early may not give a positive hCG test result. In addition, some non- women may have a hCG result slightly higher than the reference limit. Careful interpretation of the hCG with clinical history is required to determine whether the patient may be . Yobani Malik MD LAB BLOOD ORDERABLES Performing Organization Address [facility] Co de Phone Number LABORATORY [address] [address] * TROPONIN T, HIGH SENSITIVITY (11/14/2023 1:40 PM EDT) [facility] Troponin T, High Sensitivity <6 <=14 ng/L 11/14/2023 2:18 PM EDT LABORATORY [facility] Blood Venous blood specimen / Unknown Venipuncture / Unknown 11/14/2023 1:40 PM EDT 11/14/2023 1:50 PM EDT Yobani Malik MD LAB BLOOD ORDERABLES Performing Organization Address [facility] Co de Phone Number LABORATORY [address] [address] * (ABNORMAL) D-DIMER (11/14/2023 1:39 PM EDT) [facility] D-Dimer 2.67(H) <0.50 ug/mL FEU 11/14/2023 3:07 PM EDT LABORATORY [facility] Blood Venous blood specimen / Unknown Venipuncture / Unknown 11/14/2023 1:39 PM EDT 11/14/2023 1:50 PM EDT Narrative LABORATORY [facility] - 11/14/2023 3:07 PM EDT Rheumatoid factor at a level above 50 [...] definitively correlate with clinical severity of disease. Yobani Malik MD LAB BLOOD ORDERABLES Performing Organization Address [facility] Co de Phone Number LABORATORY [address] [address] * EXTRA LIGHT BLUE TOP (11/14/2023 1:39 PM EDT) Blood Venous blood specimen / Unknown Venipuncture / Unknown 11/14/2023 1:39 PM EDT 11/14/2023 1:50 PM EDT Yobani Malik MD LAB BLOOD ORDERABLES Performing Organization Address [facility] Co de Phone Number LABORATORY [address] [address] * (ABNORMAL) COMPREHENSIVE METABOLIC PANEL (11/14/2023 1:39 PM EDT) [facility] BUN 8 6 - 20 mg/dL 11/14/2023 2:20 PM EDT LABORATORY [facility] Creatinine 0.6 0.5 - 1.0 mg/dL 11/14/2023 2:20 PM EDT LABORATORY GL Estimated Glomerular Filtration Rate >90 >=60 mL/min 11/14/2023 2:20 PM EDT LABORATORY GL Comment:eGFR is calculated b ased on the CKD-EPI 2020 equation. Sodium 136 135 - 146 mmol/L 11/14/2023 2:20 PM EDT LABORATORY [facility] Potassium 3.8 3.5 - 5.1 mmol/L 11/14/2023 2:20 PM EDT LAB[facility]ATORY [facility] Chloride 103 98 - 107 mmol/L 11/14/2023 2:20 PM EDT LAB[facility]ATORY [facility] CO2 22 22 - 32 mmol/L 11/14/2023 2:20 PM EDT LAB[facility]ATORY [facility] Anion Gap 11 7 - 15 mmol/L 11/14/2023 2:20 PM EDT LAB[facility]ATORY [facility] Glucose 82 70 - 120 mg/dL 11/14/2023 2:20 PM EDT LAB[facility]ORY [facility] Albumin 3.6(L) 3.8 - 5.0 g/dL 11/14/2023 2:20 PM EDT LAB[facility]ATORY [facility] AST 12 10 - 35 U/L 11/14/2023 2:20 PM EDT LAB[facility]ATORY [facility] Alkaline Phosphatase 105 35 - 130 U/L 11/14/2023 2:20 PM EDT LAB[facility]ORY [facility] Bilirubin, Total 0.8 <=1.2 mg/dL 11/14/2023 2:20 PM EDT LAB[facility]ORY [facility] Calcium 9.0 8.4 - 10.2 mg/dL 11/14/2023 2:20 PM EDT LAB[facility]ORY [facility] Protein 6.1 6.0 - 8.3 g/dL 11/14/2023 2:20 PM EDT LAB[facility]ATORY [facility] ALT 7(L) 10 - 35 U/L 11/14/2023 2:20 PM EDT LAB[facility]ORY [facility] Blood Venous blood specimen / Unknown Venipuncture / Unknown 11/14/2023 1:39 PM EDT 11/14/2023 1:50 PM EDT Yobani Malik MD LAB BLOOD ORDERABLES LABORATORY [facility] [address] [place] [address] documented in this encounter Visit Diagnoses Diagnosis Chest pain, unspecified type- Primary Chest pain Chest pain, unspecified documented in this encounter Administered Medications Inactive Administered Medications - up to 3 most recent administrations Medication Order MAR Action Action Date Dose Rate Site Iopamidol (Isovue 370) inj 75 mL 75 mL, Intravenous, ONCE, On Fri11/14/23 at 1645, For 1 dose, Radiology Medication Routing (Non-IR) Given 11/14/2023 4:06 PM EDT 75 mL Antecubital Left NSS 0.9% 1,000 mL bolus infusion Intravenous, at 1,000 mL/hr Administer over 60 Minutes, Administer entire volume within 60 minutes or less., ONCE, 1 dose, On Fri11/14/23 at 1500 New Bag 11/14/2023 2:49 PM EDT 1,000 mL 1000 mL/hr ondansetron (Zofran) inj 4 mg 4 mg, IV Push, ONCE, On Fri11/14/23 at 1500, For 1 dose Given 11/14/2023 2:49 PM EDT 4 mg documented in this encounter Active and Recently Administered Medications Times are shown in EDT. Scheduled Medication Order 11/12/2023 11/13/2023 11/14/2023 Iopamidol (Isovue 370) inj 75 mL (COMPLETED) 75 mL, Intravenous, ONCE, On Fri11/14/23 at 1645, For 1 dose, Radiology Medication Routing (Non-IR) 1606 (Given - Provid er: Jennie Reveles, RT) NSS 0.9% 1,000 mL bolus infusion (COMPLETED) Intravenous, at 1,000 mL/hr Administer over 60 Minutes, Administer entire volume within 60 minutes or less., ONCE, 1 dose, On Fri11/14/23 at 1500 1449 (New Bag - Prov ider: Sully Marr, KIKA)1635 (Stopped - Provider: Sabrina Mcintyre RN) ondansetron (Zofran) inj 4 mg (COMPLETED) 4 mg, IV Push, ONCE, On Fri11/14/23 at 1500, For 1 dose 1449 (Given - Provid er: Sully Marr, KIKA) documented in this encounter Care Teams Jewelry Dipper Relationship Specialty Start Date End Date Belinda Malloy CRNP [address] [address] PCP - General Nurse Practitioner 05/10/22 documented as of this encounter
--- OUTSIDE RECORDS SUMMARY | 2024-02-10 08:03 | External Medical Summary | Summary of Care ---
Author Name Unknown Organization [facility] Address [address] [place] [address] Phone [phone] Care Team Providers Care Md Pediatric Allergist Name Role Phone Belinda Malloy Primary Care Provider +1- [phone] Reason for Visit * Reason Comments Return Visit 22w5d Encounter Details Date Type Department Care Team (Late st Contact Info) Description 10/06/2023 11:30 AM EDT Office [facility] [address] [place], [place] [phone] Vanessa Wiggins PA-C [address] [place] [address] 22 weeks gestation of * Allergies Active Allergy Reactions Criticality Noted Date Comments Amoxicillin 08/15/2004 hives Cefaclor 08/15/2004 hives documented as of this encounter (statuses as of 10/06/2023) Medications Medication Sig Dispensed Refills Start Date End Date Status 27-0.8 MG Oral Tablet Take 1 Tablet by mouth daily at noon. Active Metoclopramide HCl 5 MG Oral Tablet (Reglan) Take 2 Tablets by mouth every 8 hours as needed for Nausea. 20 Tablet 08/15/2023 Active documented as of this encounter (statuses as of 10/06/2023) Active Problems Problem Noted Date Diagnosed Date [...] as of this encounter (statuses as of 10/06/2023) Immunizations Name Administration Dates Next Due TDAP [...] have money to get more. Patient declined [place] Depression Scale Answer Date Recorded [place] Depression Scale Total 8 07/14/2023 The thought [...] Sign Reading Time Taken Comments Blood Pressure 108/62 10/06/2023 11:33 AM EDT Pulse - - Temperature 37 C (98.6 F) 10/06/2023 11:33 AM EDT Respiratory Rate - - Oxygen Saturation - - Inhaled Oxygen Concentration - - Weight 59 kg (130 lb) 10/06/2023 11:33 AM EDT Height - - Body Mass Index 24.32 07/14/2023 2:37 PM EDT documented in this encounter Progress Notes * Vanessa Wiggins PA-C - 10/06/2023 11:37 AM EDT Cherie Henderson is a 33 year old female here for her routine OB appointment at 22w5d Her Estimated Date of Delivery: 02/04/24 REVIEW OF SYSTEMS: She affirms movement. Denies vaginal bleeding, LOF, contractions, N/V, headaches PHYSICAL EXAM: Filed Vitals: 10/06/23 1133 BP: 108/62 Temp: 37 C (98.6 F) TempSrc: Tympanic Weight: 59 kg (130 lb) +FHT 140s Fundal height 22 ASSESSMENT/PLAN: 22 weeks gestation of (Primary) - 50-G GESTATIONAL GLUCOSE, 1 HOUR; Future; Expected date: 11/03/2023 - CBC WITH WBC DIFFERENTIAL AND ANEMIA REFLEX WORKUP; Future; Expected date: 11/03/2023 - SYPHILIS ANTIBODY SCREEN WITH REFLEX TO RPR; Future; Expected date: 11/03/2023 Follow Up: Return in about 4 weeks (around 11/03/2023) for LUZ. | For: LUZ Supervision of - had anatomy u/s - results WNLs - labs as ordered for next visit - RTO in 4 weeks Vanessa Wiggins PA-C documented in this encounter Nursing Notes * Jenny Echavarria CMA - 10/06/2023 11:35 AM EDT Chief Complaint Patient presents with Return Visit 22w5d Pt has questions concerning FHT. Rate had dropped during anatomy scan and pt would like to know if that was okay documented in this encounter Plan of Treatment Upcoming Encounters Date Type Department Care Team (Late st Contact Info) Description 11/03/2023 10:30 AM EDT Office Visit Gynecology/Obstetrics, [place] [address] [place] [address] Vanessa Wiggins PA-C [address] [place] [phone] Scheduled Orders Name Type Priority Associated Diagnoses Orde r Schedule 50-G GESTATIONAL GLUCOSE, 1 HOUR Lab Routine 22 weeks gestation of Expected: 11/03/2023 (Approximate), Expires: 10/05/2024 CBC WITH WBC DIFFERENTIAL AND ANEMIA REFLEX WORKUP Lab Routine 22 weeks gestation of Expected: 11/03/2023 (Approximate), Expires: 10/05/2024 SYPHILIS ANTIBODY SCREEN WITH REFLEX TO RPR Lab Routine 22 weeks gestation of Expected: 11/03/2023 (Approximate), Expires: 10/05/2024 Health Maintenance Due Date Last Done Comments Hepatitis B (1 of 3 - 19+ 3-dose series) 2009 HPV/Co-Test 01/27/2020 COVID-19 Vaccine (1 - 2022-2 4 season) 2022 Cervical Cancer Screening 08/25/2023 Pap Smear 08/25/2023 08/24/2020, 03/27/2017, 12/17/2012 Influenza Vaccine (FLU shot) (Season Ended) 2023 Depression Monitoring 07/09/2024 07/10/2023 DTaP,Tdap,and Td Vaccines (3 - Td or Tdap) 10/01/2032 10/01/2022, 12/03/2014 GARDASIL-HPV IMMUNIZATION SERIES Aged Out No longer eligible b ased [...] Visit Diagnoses Diagnosis 22 weeks gestation of - Primary state, incidental documented in this encounter Care Teams Md Pediatric Allergist Relationship Specialty Start Date End Date Belinda Malloy CRNP [address] [address] PCP - General Nurse Practitioner 05/10/22 documented as of this encounter"
--- OUTSIDE RECORDS SUMMARY | 2024-02-10 08:03 | External Medical Summary ---
Author Name Unknown Address Unknown Organization K1F:LABORATORY [facility] - [address] [place] [address] Laboratory Report Ordering Provider Test Date Status BALJINDER YBARRA 11/14/2023 13:40:00 Final Observation Date Value Abnormality Reference (Units ) Status WBC, Total 11/14/2023 13:40:00 9.58 4.00-10.80 (K/uL) Final RBC 11/14/2023 13:40:00 3.16 3.85-5.15 (M/uL) Final Hemoglobin 11/14/2023 13:40:00 10.8 Below low normal 12.0-15.3 (g/dL) Final HCT 11/14/2023 13:40:00 31.0 Below low normal 36.0-45.2 (%) Final MCV 11/14/2023 13:40:00 98.1 81.5-97.5 (fL) Final MCH 11/14/2023 13:40:00 34.2 27.0-34.0 (pg) Final MCHC 11/14/2023 13:40:00 34.8 32.0-36.0 (g/dL) Final RDW 11/14/2023 13:40:00 11.9 11.5-15.5 (%) Final Platelets 11/14/2023 13:40:00 208 140-400 (K/uL) Final MPV 11/14/2023 13:40:00 9.2 6.6-11.1 (fL) Final Nucleated erythrocytes/100 leukocytes [Ratio] in Blood by Automated count 11/14/2023 13:40:00 0 <=0 (/100 WBCs) Final Performing Location LABORATORY [facility] - [address] [place] [address]
--- OUTSIDE RECORDS SUMMARY | 2024-02-10 08:03 | External Medical Summary ---
Author Name Unknown Address Unknown Organization K01:LABORATORY [facility] - [facility] [address] [facility] [address] Laboratory Report Ordering Provider Test Date Status KARL HERNÁNDEZ 11/18/2023 16:04:24 Final Observation Date Value Abnormality Reference (Units ) Status Retic, % (auto) 11/18/2023 16:04:24 2.63 Above high normal 0.80-1.90 (%) Final Reticulocytes, Absolute 11/18/2023 16:04:24 82.1 31.3-100.1 (K/uL) Final Reticulocyte fraction, immature 11/18/2023 16:04:24 26.7 Above high normal 2.5-20.6 (%) Final Reticulocyte HGB 11/18/2023 16:04:24 34.7 29.7-37.4 (pg) Final Performing Location LABORATORY [facility] - [address] [facility] [address]
--- OUTSIDE RECORDS SUMMARY | 2024-02-10 08:03 | External Medical Summary ---
Author Name Unknown Address Unknown Organization K1F:LABORATORY [facility] - [address] [place] [address] Laboratory Report Ordering Provider Test Date Status BALJINDER YBARRA 11/14/2023 14:46:37 Final Collect 1 HOUR Observation Date Value Abnormality Reference (Units ) Status Troponin T 11/14/2023 14:46:37 <6 <=14 (ng/ L) Final Performing Location LAB[facility]ATORY [facility] - [address] [place] [address]
--- OUTSIDE RECORDS SUMMARY | 2024-02-10 08:03 | External Medical Summary | Summary of Care ---
Author Name Unknown Organization [facility] Address [address] [place] [address] Phone [phone] Care Team Providers Care Audiology Assistant Name Role Phone Belinda Malloy Primary Care Provider +1- [phone] Encounter Details Date Type Department Care Team (Late st Contact Info) Description 11/18/2023 3:30 PM EDT Office Visit [facility]necology/Obstetric [facility] [address] [place], [place] [phone] Leann Raya [facility] [address] [place] [address] Supervision of other normal , [...] have money to get more. Patient declined [place] Depression Scale Answer Date Recorded [place] Depression Scale Total 8 07/14/2023 The thought [...] No 07/10/2023 Does the household have a [facility] income? (Household - for [...] 12/02/2023 1:00 PM EDT Office Visit Gynecology/Obstetrics, [place] [address] [place] [place] [address] Vanessa Wiggins PA-C [address] [place] [phone] Health Maintenance Due Date Last Done Comments [...] Primary documented in this encounter Care Teams Audiology Assistant Relationship Specialty Start Date End Date Belinda Malloy CRNP [address] [phone] PCP - General Nurse Practitioner 05/10/22 documented as of this encounter
--- OUTSIDE RECORDS SUMMARY | 2024-02-10 08:03 | External Medical Summary ---
Author Name Unknown Address Unknown Organization K01:[facility] [place] [address] [place], [place] [address] [address] Laboratory Report Ordering Provider Test Date Status EDGARLELO SANBritt 11/18/2023 16:04:24 Final Observation Date Value Abnormality Reference (Units ) Status WBC, Total 11/18/2023 16:04:24 9.00 4.00-10.8 0 (K/uL) Final RBC 11/18/2023 16:04:24 3.11 3.85-5.15 (M/uL) Final Hemoglobin 11/18/2023 16:04:24 10.5 Below low normal 12 .0-15.3 (g/dL) Final Anemia reflex testing trigge rs on a HGB < 12.0 for Females and HGB < 13.0 for Males in accordance with the WHO Anemia Guidelines
Anemia reflex testing triggers on a HGB < 12.0 for Females and HGB < 13.0 for Males in accordance with the WHO Anemia Guidelines HCT 11/18/2023 16:04:24 31.4 Below low normal 36. 0-45.2 (%) Final MCV 11/18/2023 16:04:24 101.0 81.5-97.5 (fL) Final MCH 11/18/2023 16:04:24 33.8 27.0-34.0 (pg) Final MCHC 11/18/2023 16:04:24 33.4 32.0-36.0 (g/dL) Final RDW 11/18/2023 16:04:24 12.2 11.5-15.5 (%) Final Platelets 11/18/2023 16:04:24 238 140-400 (K /uL) Final MPV 11/18/2023 16:04:24 9.9 6.6-11.1 ( fL) Final Nucleated erythrocytes/100 leukocytes [Ratio] in Blood by Automated count 11/18/2023 16:04:24 0 <=0 (/100 WBCs) Lizzie zhao Performing Location [facility] [place] [address] [facility] [address]
--- OUTSIDE RECORDS SUMMARY | 2024-02-10 08:03 | External Medical Summary ---
Author Name Unknown Address Unknown Organization K1F:[facility] [address] [facility] [address] [place] [address] Laboratory Report Ordering Provider Test Date Status BALJINDER YBARRA 11/14/2023 13:40:00 Final Observation Date Value Abnormality Reference (Units ) Status SYNC LEUKOCYTES IN BLOOD BY AUTOMATED COUNT 11/14/2023 13:40:00 9.58 4.00-10.80 (K/uL) Final Segs 11/14/2023 13:40:00 74.2 40.0-75.0 (%) Final Lymphs % 11/14/2023 13:40:00 19.0 18.0-42.0 (%) Final Monos 11/14/2023 13:40:00 4.7 1.0-11.0 (%) Final Eosinophils 11/14/2023 13:40:00 0.9 0.0-6.0 (%) Final Basos 11/14/2023 13:40:00 0.3 0.0-2.0 (%) Final Immature Granulocyte, Percent 11/14/2023 13:40:00 0.9 0.0-2.0 (%) Final Absolute Segs 11/14/2023 13:40:00 7.10 1.80-7.70 (K/uL) Final Lymphs, absolute 11/14/2023 13:40:00 1.82 1.00-4.80 (K/ul) Final Monos, Abs 11/14/2023 13:40:00 0.45 0.00-1.10 (K/uL) Final Eos, Abs 11/14/2023 13:40:00 0.09 0.00-0.70 (K/uL) Final Basos, Abs 11/14/2023 13:40:00 0.03 0.00-0.20 (K/uL) Final Immature Granulocytes, Number 11/14/2023 13:40:00 0.09 0.00-0.20 (K/uL) Final Performing Location LAB[facility]ATORY [facility] - [address] [facility] [address] [place] [address]
--- OUTSIDE RECORDS SUMMARY | 2024-02-10 08:04 | External Medical Summary | Summary of Care ---
Author Name Unknown Organization [facility] Address [address] [place] [address] Phone [phone] Care Team Providers Care Licensing Analyst Name Role Phone Belinda Malloy Primary Care Provider +1- [phone] Encounter Details Date Type Department Care Team (Late st Contact Info) Description 09/23/2023 Telephone Gynecology/Obstetrics [facility] [address] [place] [address] Laverne Mazariegos PA-C [address] [place] [address] Allergies Active Allergy Reactions Criticality Noted Date Comments Amoxicillin 08/15/2004 hives Cefaclor 08/15/2004 hives documented as of this encounter (statuses as of 09/25/2023) Medications Medication Sig Dispensed Refills Start Date End Date Status 27-0.8 MG Oral Tablet Take 1 Tablet by mouth daily at noon. Active Metoclopramide HCl 5 MG Oral Tablet (Reglan) Take 2 Tablets by mouth every 8 hours as needed for Nausea. 20 Tablet 08/15/2023 Active documented as of this encounter (statuses as of 09/25/2023) Active Problems Problem Noted Date Diagnosed Date [...] as of this encounter (statuses as of 09/25/2023) Immunizations Name Administration Dates Next Due TDAP [...] have money to get more. Patient declined [place] Depression Scale Answer Date Recorded [place] Depression Scale Total 8 07/14/2023 The thought of harming myself has occurred to me . Never 07/14/2023 Estimated Date of Delivery Comme nts Yes [...] Telephone Encounter - Kathy Rodriguez LPN - 09/25/2023 10:47 AM EDT Call back from pt, pt given information and expressed understanding. Kathy Rodriguez LPN * Telephone Encounter - Bebeto Garcia RN - 09/23/2023 10:13 AM EDT LMTRC * Telephone Encounter - Bebeto Garcia RN - 09/23/2023 10:09 AM EDT ----- Message from Laverne Mazariegos sent at 09/23/2023 8:51 AM EDT ----- Please inform patient her anatomy scan is WNLs, FHR 135 bpm, all anatomy seen and growth is within normal range. Keep NOV as scheduled documented in this encounter Plan of Treatment Upcoming Encounters Date Type Department Care Team (Late st Contact Info) Description 10/06/2023 11:30 AM EDT Office Visit Gynecology/Obstetrics, [place] [address] [place] [address] Vanessa Wiggins PA-C [address] [place] [address] Health Maintenance Due Date [...] filedocumented as of this encounter Care Teams Licensing Analyst Relationship Specialty Start Date End Date Belinda Malloy CRNP [address] [phone] PCP - General Nurse Practitioner 05/10/22 documented as of this encounter
--- OUTSIDE RECORDS SUMMARY | 2024-02-10 08:04 | External Medical Summary | Summary of Care ---
Author Name Unknown Organization [facility] Address [address] [place] [address] Phone [phone] Care Team Providers Care Stage Electrician Helper Name Role Phone Chelo Malloy Primary Care Provider +1- [phone] Reason for Visit * Reason Onset Date Comments Medication Refill 08/13/2023 Encounter Details Date Type Department Care Team (Late st Contact Info) Description 08/13/2023 Refill [facility] [address] [place] [address] Chelo Malloy CRNP [address] [place] [address] Allergies Active Allergy Reactions Criticality Noted Date Comments Amoxicillin 08/15/2004 hives Cefaclor 08/15/2004 hives documented as of this encounter (statuses as of 08/15/2023) Medications Medication Sig Dispensed Refills Start Date End Date Status 27-0.8 MG Oral Tablet Take 1 Tablet by mouth daily at noon. 0 Active Metoclopramide HCl 5 MG Oral Tablet (Reglan) Take 2 Tablets by mouth every 8 hours as needed for Nausea. 20 Tablet 0 08/15/2023 Active Metoclopramide HCl 5 MG Oral Tablet (Reglan) Take 2 Tablets by mouth every 8 hours as needed for Nausea. 20 Tablet 0 07/23/2023 08/13/2023 Discontinued (Refill) documented as of this encounter (statuses as of 08/15/2023) Active Problems Problem Noted Date Diagnosed Date [...] as of this encounter (statuses as of 08/15/2023) Immunizations Name Administration Dates Next Due TDAP [...] have money to get more. Patient declined [place] Depression Scale Answer Date Recorded [place] Depression Scale Total 8 07/14/2023 The thought [...] encounter Miscellaneous Notes * Telephone Encounter - Donley, Chelo Pooja, ASSEMBLER PIANO - 08/15/2023 12:24 PM EDTSigned Prescriptions: Disp Refills Metoclopramide HCl 5 MG Oral Tablet (Lauryn*20 Tab*0 Sig: Take 2 Tablets by mouth every 8 hours as needed for Nausea. Authorizing Provider: CHEOL MALLOY * Telephone Encounter - Jennifer Echavarria LPN - 08/15/2023 8:09 AM EDTPending Prescriptions: Disp Refills Metoclopramide HCl 5 MG Oral Tablet (Lauryn*20 Tab*0 Sig: Take 2 Tablets by mouth every 8 hours as needed for Nausea. * Telephone Encounter - Kaylee Mckoy - 08/14/2023 11:20 PM EDTPending Prescriptions: Disp Refills Metoclopramide HCl 5 MG Oral Tablet (Lauryn*20 Tab*0 Sig: Take 2Tablets by mouth every 8 hours as needed for Nausea. documented in this encounter Plan of Treatment Upcoming Encounters Date Type Department Care Team (Late st Contact Info) Description 09/09/2023 1:45 PM EDT Office Visit Gynecology/Obstetrics, [place] [address] [place] [address] Vanessa Wiggins PA-C [address] [place] [address] 09/22/2023 1:45 PM EDT Imaging Gynecology/Obstetrics [place] [address] [place] [address] Health Maintenance Due Date Last Done Comments Hepatitis B (1 of 3 - 19+ 3-dose series) 2009 HPV/Co-Test 01/27/2020 COVID-19 Vaccine ( - 2022-2 4 season) 2022 Cervical Cancer Screening 08/25/2023 Pap Smear 08/25/2023 08/24/2020, 03/27/2017, 12/17/2012 Influenza Vaccine (FLU shot) (Season Ended) 2023 DTaP,Tdap,and Td Vaccines (3 - Td or [...] filedocumented as of this encounter Care Teams Stage Electrician Helper Relationship Specialty Start Date End Date Chelo Malloy CRNP [address] [address] PCP - General Nurse Practitioner 05/10/22 documented as of this encounter
--- OUTSIDE RECORDS SUMMARY | 2024-02-10 08:04 | External Medical Summary | Summary of Care ---
Author Name Unknown Organization [facility] Address [address] [place] [address] Phone [phone] Care Team Providers Care Type Soldering Machine Tender Name Role Phone Belinda Malloy Primary Care Provider +1- [phone] Encounter Details Date Type Department Care Team (Late st Contact Info) Description 09/23/2023 Telephone Gynecology/Obstetrics [facility] [address] [place] [address] Laverne Mazariegos PA-C [address] [place] [address] Allergies Active Allergy Reactions Criticality Noted Date Comments Amoxicillin 08/15/2004 hives Cefaclor 08/15/2004 hives documented as of this encounter (statuses as of 09/23/2023) Medications Medication Sig Dispensed Refills Start Date End Date Status 27-0.8 MG Oral Tablet Take 1 Tablet by mouth daily at noon. Active Metoclopramide HCl 5 MG Oral Tablet (Reglan) Take 2 Tablets by mouth every 8 hours as needed for Nausea. 20 Tablet 08/15/2023 Active documented as of this encounter (statuses as of 09/23/2023) Active Problems Problem Noted Date Diagnosed Date [...] as of this encounter (statuses as of 09/23/2023) Immunizations Name Administration Dates Next Due TDAP [...] have money to get more. Patient declined [place] Depression Scale Answer Date Recorded [place] Depression Scale Total 8 07/14/2023 The thought [...] encounter Miscellaneous Notes * Telephone Encounter - Bebeto Garcia RN [...] 10/06/2023 11:30 AM EDT Office Visit Gynecology/Obstetrics, [place] [address] [address] Vanessa Wiggins PA-C [address] [place] [address] Health Maintenance Due Date [...] filedocumented as of this encounter Care Teams Type Soldering Machine Tender Relationship Specialty Start Date End Date Belinda Malloy CRNP [address] [phone] PCP - General Nurse Practitioner 05/10/22 documented as of this encounter
--- OUTSIDE RECORDS SUMMARY | 2024-02-10 08:04 | External Medical Summary | Summary of Care ---
Author Name Unknown Organization [facility] Address [address] [place] [address] Phone [phone] Care Team Providers Care Paper Spooler Name Role Phone Belinda Malloy Primary Care Provider +1- [phone] Reason for Visit * Reason Comments Return Visit 18w6d Encounter Details Date Type Department Care Team (Late st Contact Info) Description 09/09/2023 1:45 PM EDT Office Visit Gynecology/Obstetric [place] [address] [place], [place] [phone] Vanessa Wiggins PA-C [address] [place] [address] 18 weeks gestation of * Allergies Active Allergy Reactions Criticality Noted Date Comments Amoxicillin 08/15/2004 hives Cefaclor 08/15/2004 hives documented as of this encounter (statuses as of 09/09/2023) Medications Medication Sig Dispensed Refills Start Date End Date Status 27-0.8 MG Oral Tablet Take 1 Tablet by mouth daily at noon. Active Metoclopramide HCl 5 MG Oral Tablet (Reglan) Take 2 Tablets by mouth every 8 hours as needed for Nausea. 20 Tablet 08/15/2023 Active documented as of this encounter (statuses as of 09/09/2023) Active Problems Problem Noted Date Diagnosed Date [...] as of this encounter (statuses as of 09/09/2023) Immunizations Name Administration Dates Next Due TDAP [...] have money to get more. Patient declined [place] Depression Scale Answer Date Recorded [place] Depression Scale Total 8 07/14/2023 The thought [...] Sign Reading Time Taken Comments Blood Pressure 120/66 09/09/2023 1:48 PM EDT Pulse - - Temperature 37 C (98.6 F) 09/09/2023 1:48 PM EDT Respiratory Rate - - Oxygen Saturation - - Inhaled Oxygen Concentration - - Weight 56.4 kg (124 lb 6.4 oz) 09/09/2023 1:48 P M EDT Height - - Body Mass Index 23.28 07/14/2023 2:37 PM EDT documented in this encounter Patient Instructions * Patient Instructions* Vanessa Wiggins PA-C - 09/09/2023 2:28 PM EDT Creams to try for Eczema: - CeraVe - Aquaphor - Eucerin documented in this encounter Progress Notes * Vanessa Wiggins PA-C - 09/09/2023 2:22 PM EDT Cherie Henderson is a 33 year old female here for her routine OB appointment at 18w6d Her Estimated Date of Delivery: 02/04/24 REVIEW OF SYSTEMS: She affirms movement. Denies vaginal bleeding, LOF, contractions, N/V, headaches Reports rash that started between her breasts, and then began to spread down her abdomen. First noticed a few months ago around the beginning of , or maybe a bit before. Has had similar issues in the past. No itching or pain. Using jergens natural healing on her belly. PHYSICAL EXAM: Filed Vitals: 09/09/23 1348 BP: 120/66 Temp: 37 C (98.6 F) TempSrc: Tympanic Weight: 56.4 kg (124 lb 6.4 oz) +FHT 150s Eczema like rash on abdomen/in between breasts ASSESSMENT/PLAN: 18 weeks gestation of (Primary) Follow Up: Return in about 4 weeks (around 10/07/2023) for LUZ. | For: LUZ Supervision of - anatomy u/s scheduled for 09/21 - discussed MSAFP and role in detecting open neural tube defects. Patient declines. - RTO in 4 weeks Vanessa Wiggins PA-C documented in this encounter Nursing Notes * Jenny Echavarria CMA - 09/09/2023 1:47 PM EDT Chief Complaint Patient presents with Return Visit 18w6d Pt reports rash to stomach. First noticed several months ago between breasts but notes that it has spread to just above her belly button. Denies itching or burning. Denies other household members with rashes. Currently not using anythingcreams, lotions, or ointments. documented in this encounter Plan of Treatment Upcoming Encounters Date Type Department Care Team (Late st Contact Info) Description 09/22/2023 1:45 PM EDT Imaging Gynecology/Obstetrics [place] [address] [address] 10/06/2023 11:30 AM EDT Office Visit [facility]cology[facility] [address] [address] Vanessa Wiggins PA-C [address] [address] Health Maintenance Due Date Last Done Comments [...] as of this encounter Visit Diagnoses Diagnosis 18 weeks gestation of - Primary state, incidental documented in this encounter Care Teams Paper Spooler Relationship Specialty Start Date End Date Belinda Malloy CRNP [address] [phone] PCP - General Nurse Practitioner 05/10/22 documented as of this encounter"
--- OUTSIDE RECORDS SUMMARY | 2024-02-10 08:04 | External Medical Summary | Summary of Care ---
Author Name Unknown Organization [facility] Address [address] [place] [address] Phone [phone] Care Team Providers Care Primary Care Provider Name Role Phone Belinda Malloy Primary Care Provider [phone] Encounter Details Date Type Department Care Team (Late st Contact Info) Description 05/20/2023 Telephone Otolaryng[facility], Sayda Lind [address] [id number] Carlos Cartagena PA-C [address] [id number] Allergies Active Allergy Reactions Criticality Noted Date Comments Amoxicillin 08/15/2004 hives Cefaclor 08/15/2004 hives documented as of this encounter (statuses as of 08/19/2023) Medications Medication Sig Dispensed Refills Start Date End Date Status buPROPion HCl ER (XL) 300 MG Oral Tablet Extended Release 24 Hour (Wellbutrin XL)Indications:Thom or depressive disorder, recurrent episode, moderate (HCC),CHARI (generalized anxiety disorder) TAKE 1 TABLET BY MOUTH IN THE MORNING 30 Tablet 5 12/27/2022 07/14/2023 Discontinued (Medication List Clean Up) Ondansetron HCl 4 MG Oral TabletIndications: Nausea and vomiting, unspecified vomiting type Take 1 Tablet by mouth every 6 hours as needed for Nausea. 30 Tablet 0 01/21/2023 07/14/2023 Discontinued (Medication List Clean Up) documented as of this encounter (statuses as of 08/19/2023) Active Problems Problem Noted Date Diagnosed Date [...] as of this encounter (statuses as of 08/19/2023) Immunizations Name Administration Dates Next Due TDAP [...] have money to get more. Patient declined [place] Depression Scale Answer Date Recorded [place] Depression Scale Total 8 07/14/2023 The thought [...] encounter Miscellaneous Notes * Telephone Encounter - Agatha Jorge LPN - 05/22/2023 1:30 PM EST MyG sent to pt. * Telephone Encounter - Yocasta Guzmán LPN - 05/20/2023 4:03 PM EST Message left for return call. See below. * Telephone Encounter - Carlos Cartagena PA-C - 05/20/2023 3:37 PM EST Please let patient know that MRI of the IACs was within normal limits. documented in this encounter Plan of Treatment Upcoming Encounters Date Type Department Care Team (Late st Contact Info) Description 09/09/2023 1:45 PM EDT Office Visit [facility] [address] [phone] Vanessa Wiggins PA-C [address] [id number] 09/22/2023 1:45 PM EDT Imaging Gynecology/Obstetrics Sayda Mei [address] [id number] Health Maintenance Due Date Last Done Comments [...] filedocumented as of this encounter Care Teams Primary Care Provider Relationship Specialty Start Date End Date Belinda Malloy CRNP [address] [phone] PCP - General Nurse Practitioner 05/10/22 documented as of this encounter
[2024-02-10] MEDS ORDERED: OXYTOCIN 30 UNITS/NSS 30 UNITS/500 ML BAG IV PRN ×2 (10:27→23:10)
[2024-02-10] MEDS ORDERED: ACETAMINOPHEN 325 MG TAB PO PRN ×2 (10:27→23:10)
[2024-02-10] MEDS ORDERED: LIDOCAINE 1% LOCAL 20 ML VIAL INFIL PRN (10:27)
[2024-02-10] MEDS ORDERED: CALCIUM CARBONATE 500 MG CHEWABLE TAB PO PRN (10:27)
--- NOTE | 2024-02-10 10:43 | History & Physical Report ---
Date of Service February 10, 2024 Assessment & Plan (1) Post-term , 40-42 weeks of gestation: Plan: 34-year-old -0-2-1 at 40 weeks and 6 days of gestation, scheduled for induction of labor for postdates, Vital signs stable afebrile, GBS negative, Cervix favorable, Plan admit, monitor, labs, IV oxytocin per protocol and add AROM when able, Anticipate , All questions were answered. Admission and Anticipated Discharge Date Admission Date: February 10, 2024 History of Present Illness Primary Care Provider: NO PCP Patient is [id number] -0-2-1 at40 weeks and 6 days of gestation who was admitted for induction of labor for postdates. She has no complaints. She denies contractions, leakage of up, vaginal bleeding. She reports good movements. Her has been uncomplicated, GBS negative. She has a history of depression but has not been on medications for years, patient denies any symptoms and feels well. h/o medical marijuana use Allergies Allergy/AdvReac Type Severity Reaction Status Date / Time amoxicillin Allergy Hives Verified 02/04/24 19:15 cefaclor [From Ceclor] Allergy Hives Verified 02/04/24 19:15 Home Medications Medication Instructions Recorded Confirmed Type docusate sodium 100 mg capsule 100 mg PO DAILY 02/10/24 02/10/24 History (Colace) ferrous sulfate 325 mg (65 mg 325 mg PO DAILY 02/10/24 02/10/24 History iron) tablet vits no.124-ferrous fum 1 tab PO DAILY 02/10/24 02/10/24 History 27 mg iron-folic acid 800 mcg tablet ( Vitamin) Patient History Medical History Antepartum anemia Insomnia Shift work sleep disorder PTSD (post-traumatic stress disorder) mother and paternal grandfather committed suicide within the same year History of chlamydia Anxiety Depression Migraines Low grade squamous intraepithelial lesion (LGSIL) on cervical Pap smear (04/04/17) negative colpo and bx Surgical History H/O colonoscopy (04/19/22) entire colon normal per records. done by siva gonzales md. History of tonsillectomy History of dental surgery Hx of tympanostomy tubes Family History Grandmother (Paternal) No problems noted. Mother Bipolar disorder Suicide Depression Grandmother (Maternal) COPD (chronic obstructive pulmonary disease) Asthma Grandfather (Paternal) Suicide Father Asthma Social History Smoking Status: Former smoker Tobacco Type: Cigarettes Smoking End Date: 2020; Hx Alcohol Use: No Hx Substance Use: Yes Prescribed Medications: Marijuana Prescribed Medications Comment: Stopped medical marijuana in July Last Used Substance Other:: "over 8 months ago"- used at beginning of Substance Use Type Other:: medical marijuana Preferred Language: Lithuanian Communication Ability: Effective Visual Impairment: No Limitations Hearing Ability: Normal Traffic Clerk Required: No Beliefs That Will Affect Care: None marital status: Single Current Living Situation: Significant Other Current Living Situation Comment: Lives with Gilbert, partial custody of son, 2 dogs and a cat current occupational status: employed 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 Other Information That Helps Us Care for You: No Feels Safe at Home: Yes Safety Concerns: Feels Safe At This Time Diet: regular Assistive Devices: None OB History Full-term 13 years ago, no complications 2 SAB [facility] History No h/o genital HSV/ Chlamydia/ GC Review of Systems as per Subjective / HPI Physical Exam Constitutional: WD/WN, vitals as above well developed, well nourished and comfortable Gastrointestinal (Abdomen): normal bowel sounds, soft, nontender, no hepatosplenomegaly (Gravid) Genitourinary: normal external appearance OB Exam Abdomen: + vertex Manual OB Exam: + cervical dilation 3 cm, + cervical effacement 50% and + station -2 OB Exam Monitor Tracing: + external uterine monitor used and + category I Results & Data Vital Signs (Past 12 Hours) Vital Signs Temp Pulse Resp BP 02/10/24 07:44 36.8 C 83 20 113/70
[2024-02-10 11:09] LABS: Hematocrit (blood only) 32.6 % (37.0-47.0); Hemoglobin 10.7 g/dl (12.0-16.0); Mean Corpuscular Hemoglobin 30.2 pg (25.0-34.0); Mean Corpuscular Hgb Conc 32.8 g/dL (32.0-36.0); Mean Corpuscular Volume 92.1 fL (80.0-100.0); Mean Platelet Volume 9.6 fL (9.4-12.4); Platelet Count 253 K/uL (130-400); RDW Coefficient of Variation 13.2 % (11.5-14.5); RDW Standard Deviation 44.5 fL (36.4-46.3); Red Blood Count 3.54 M/uL (4.20-5.40); White Blood Count 8.95 K/ul (4.8-10.8)
[2024-02-10] MEDS: LACTATED RINGER'S 1,000 ML IV SCH (11:30)
[2024-02-10] MEDS: OXYTOCIN 30 UNITS/NSS 30 UNITS/500 ML BAG IV PRN (11:31)
[2024-02-10 13:59] LABS: Amphetamines+Metham, Urine Neg (Neg); Barbiturates, Urine Neg (Neg); Benzodiazepine, Urine Neg (Neg); Cocaine, Urine Neg (Neg); Fentanyl, Urine Neg (Neg); MDMA (Ecstacy), Urine Neg (Neg); Marijuana, Urine Neg (Neg); Methadone, Urine Neg (Neg); Opiate, Urine Neg (Neg); Phencyclidine, Urine Neg (Neg)
--- NOTE | 2024-02-10 15:47 | Obstetrical Progress Note ---
Date of Service February 10, 2024 Assessment & Plan Admission and Anticipated Discharge Date Admission Date: February 10, 2024 Subjective Patient is reevaluated. She has been using birthing ball for pain, does not want epidural FHR categ I [place] ctxs q 2-4 min, Oxytocin is at 16 miu/min VE; 4/ 50%/ -2, AROM'ed clear fluid Continue to monitor closely Results & Data Vital Signs (Past 12 Hours) Vital Signs Temp Pulse Resp BP 02/10/24 15:11 78 105/56 L 02/10/24 14:04 93 H 20 116/62 02/10/24 12:55 88 112/67 02/10/24 12:39 89 113/68 02/10/24 12:23 91 H 113/63 02/10/24 12:08 36.8 C 90 20 116/64 02/10/24 11:53 87 16 114/67 02/10/24 11:38 88 20 108/66 02/10/24 07:44 36.8 C 83 20 113/70
--- NOTE | 2024-02-10 17:40 | Obstetrical Progress Note ---
Date of Service February 10, 2024 Assessment & Plan Admission and Anticipated Discharge Date Admission Date: February 10, 2024 Subjective Patient is reevaluated. VE: 5/ 70%/ -2 FHR categ I [place] ctxs q 2-3 min Discussed pain management and epidural Patient will think about it Continue to monitor closely Results & Data Vital Signs (Past 12 Hours) Vital Signs Temp Pulse Resp BP 02/10/24 17:32 37.1 C 22 02/10/24 17:04 77 123/73 02/10/24 16:40 36.9 C 16 02/10/24 16:04 69 128/73 02/10/24 15:48 36.6 C 20 02/10/24 15:11 78 105/56 L 02/10/24 14:04 93 H 20 116/62 02/10/24 12:55 88 112/67 02/10/24 12:39 89 113/68 02/10/24 12:23 91 H 113/63 02/10/24 12:08 36.8 C 90 20 116/64 02/10/24 11:53 87 16 114/67 02/10/24 11:38 88 20 108/66 02/10/24 07:44 36.8 C 83 20 113/70
[2024-02-10] MEDS: BUPIVACAINE 0.25% PF 30 ML VIAL ONE (17:52)
[2024-02-10] MEDS: fentaNYL citrate PF 100 MCG/2 ML VIAL ONE (18:06)
[2024-02-10] MEDS: fentANYL 2 MCG/ML BUPIVacaine 0.125%-NSS 100ML BAG ONE (18:07)
[2024-02-10] MEDS: SODIUM CHLORIDE 0.9% PF INJ 10 ML VIAL ONE (18:09)
[2024-02-10] MEDS: LIDOCAINE 2%/EPINEPHRINE 1:200,000 20 ML PF ONE (18:10)
[2024-02-10] MEDS ORDERED: BUPIVACAINE 0.25% PF 30 ML VIAL EPI PRN (18:11)
[2024-02-10] MEDS ORDERED: NALBUPHINE HCL INJ 10 MG/ML AMP IV PRN (18:11)
[2024-02-10] MEDS ORDERED: NALOXONE HCL 1 MG in SODIUM CHLORIDE 0.9% 1,000 ML IV PRN (18:11)
[2024-02-10] MEDS ORDERED: ePHEDrine sulfate 50 MG/ML AMP IV PRN (18:11)
[2024-02-10] MEDS ORDERED: LIDOCAINE 2% MPF LOCAL 5 ML VIAL EPI PRN (18:11)
[2024-02-10] MEDS ORDERED: fentaNYL citrate PF 100 MCG/2 ML VIAL EPI PRN (18:11)
[2024-02-10] MEDS ORDERED: SODIUM CHLORIDE 0.9% PF INJ 10 ML VIAL EPI PRN (18:11)
[2024-02-10] MEDS ORDERED: NALOXONE HCL 0.4 MG/1 ML VIAL/CARP IV PRN (18:11)
[2024-02-10] MEDS ORDERED: ROPIVACAINE 0.5% PF 5 MG/ML 20 ML VIAL EPI PRN (18:11)
[2024-02-10] MEDS ORDERED: diphenhydrAMINE 50 MG/ML VIAL IV PRN (18:11)
[2024-02-10] MEDS ORDERED: fentANYL 2 MCG/ML BUPIVacaine 0.125%-NSS 100ML BAG EPI PRN (18:11)
--- NOTE | 2024-02-10 18:13 | Anesthesiology Consultation ---
Date of Service February 10, 2024 Assessment & Plan Chart Review Chart Review: Acceptable Risk for Labor Epidural Consults Requested none History Height/Weight Height: 5 ft 2 in Weight: 64.954 kg Allergies Allergy/AdvReac Type Severity Reaction Status Date / Time amoxicillin Allergy Hives Verified 02/04/24 19:15 cefaclor [From Ceclor] Allergy Hives Verified 02/04/24 19:15 Medications Home Medications Medication Instructions Recorded Confirmed Last Taken docusate sodium 100 mg capsule 100 mg PO DAILY 02/10/24 02/10/24 02/09/24 16:00 (Colace) ferrous sulfate 325 mg (65 mg 325 mg PO DAILY 02/10/24 02/10/24 02/03/24 08:00 iron) tablet vits no.124-ferrous fum 1 tab PO DAILY 02/10/24 02/10/24 02/07/24 08:00 27 mg iron-folic acid 800 mcg tablet ( Vitamin) Active Medications Generic Name Dose Route Start Last Admin Trade Name Freq PRN Reason Stop Dose Admin Oxytocin 30 units in 500 mls @ 16 mls/hr 02/10/24 10:28 02/10/24 15:30 Pitocin 30 Units/Nss IV 02/12/24 10:27 0.96 units/hr .Q24H PRN 16 mls/hr Labor Induction/Augmentation Titration Protocol 0.96 UNITS/HR Lactated Ringer's 1,000 mls @ 50 mls/hr 02/10/24 11:30 02/10/24 18:05 Lr IV 02/11/24 11:29 Infused .Q20H MAURICIO Infusion Past Medical History Medical History Antepartum anemia Insomnia Shift work sleep disorder PTSD (post-traumatic stress disorder) mother and paternal grandfather committed suicide within the same year History of chlamydia Anxiety Depression Migraines Low grade squamous intraepithelial lesion (LGSIL) on cervical Pap smear (04/04/17) negative colpo and bx Past Family History Family History Grandmother (Paternal) No problems noted. Mother Bipolar disorder Suicide Depression Grandmother (Maternal) COPD (chronic obstructive pulmonary disease) Asthma Grandfather (Paternal) Suicide Father Asthma Past Surgical History Surgical History H/O colonoscopy (04/19/22) entire colon normal per records. done by siva gonzales md. History of tonsillectomy History of dental surgery Hx of tympanostomy tubes Social History Smoking Status: Former smoker Smoking End Date: 2020 Hx Alcohol Use: No Hx Substance Use: Yes substance use type: marijuana Substance Use Type Other:: medical marijuana Last Used Substance Other:: "over 8 months ago"- used at beginning of Physical Exam Vital Signs Last Vital Signs Temp 37.1 C 02/10/24 17:32 Pulse 83 02/10/24 18:12 Resp 22 02/10/24 17:32 BP 114/64 02/10/24 18:12 Pulse Ox 100 02/10/24 18:09 Testing Laboratory Results 02/10/24 10:38
[2024-02-10] MEDS: ePHEDrine sulfate 50 MG/ML AMP ONE (18:34)
--- NOTE | 2024-02-10 21:55 | Obstetrical Progress Note ---
Date of Service February 10, 2024 Assessment & Plan Admission and Anticipated Discharge Date Admission Date: February 10, 2024 Subjective Patient has received epidural and resting comfortably FHR categ I [place] ctxs q 2-3 min VE; Ant lip only, head +2 station, post fontanelle and 1 o'clock, OA Continue to monitor closely Results & Data Vital Signs (Past 12 Hours) Vital Signs Temp Pulse Resp BP Pulse Ox 02/10/24 21:49 80 100 02/10/24 21:48 86 91 02/10/24 21:44 77 99 02/10/24 21:39 77 100 02/10/24 21:38 77 109/64 02/10/24 21:34 79 100 02/10/24 21:30 18 02/10/24 21:30 36.7 C 18 02/10/24 21:29 84 100 02/10/24 21:24 82 100 02/10/24 21:22 82 119/73 02/10/24 21:19 86 100 02/10/24 21:14 81 100 02/10/24 21:09 92 H 100 02/10/24 21:08 83 118/73 02/10/24 21:04 84 100 02/10/24 21:00 16 02/10/24 21:00 16 02/10/24 20:59 89 100 02/10/24 20:54 80 100 02/10/24 20:53 80 113/71 02/10/24 20:49 83 100 02/10/24 20:44 81 100 02/10/24 20:39 79 110/66 100 02/10/24 20:34 77 100 02/10/24 20:29 72 100 02/10/24 20:24 81 100 02/10/24 20:23 88 112/70 02/10/24 20:19 100 H 100 02/10/24 20:14 82 100 02/10/24 20:09 77 107/67 99 02/10/24 20:04 78 98 02/10/24 19:59 76 99 02/10/24 19:54 86 99 02/10/24 19:53 79 115/63 02/10/24 19:49 82 99 02/10/24 19:44 80 98 02/10/24 19:39 81 99 02/10/24 19:37 84 105/63 02/10/24 19:34 82 99 02/10/24 19:30 18 02/10/24 19:30 36.6 C 18 02/10/24 19:30 18 02/10/24 19:30 36.6 C 18 02/10/24 19:29 76 99 02/10/24 19:24 99 02/10/24 19:24 81 02/10/24 19:24 79 109/64 02/10/24 19:19 88 100 02/10/24 19:14 87 100 02/10/24 19:09 91 H 98 02/10/24 19:08 81 113/63 02/10/24 19:04 96 H 99 02/10/24 18:59 89 100 02/10/24 18:54 104 H 98 02/10/24 18:52 111 H 104/61 02/10/24 18:49 98 H 99 02/10/24 18:44 96 H 100 02/10/24 18:39 94 H 99 02/10/24 18:38 93 H 115/66 02/10/24 18:34 90 97 02/10/24 18:29 92 H 98 02/10/24 18:24 93 H 98 02/10/24 18:22 90 110/60 02/10/24 18:20 87 110/57 L 02/10/24 18:19 91 H 100 02/10/24 18:18 93 H 119/66 02/10/24 18:16 89 116/66 02/10/24 18:14 97 02/10/24 18:14 95 H 02/10/24 18:14 88 115/65 02/10/24 18:12 83 114/64 02/10/24 18:10 82 109/65 02/10/24 18:09 82 100 02/10/24 18:08 84 109/63 02/10/24 18:06 78 108/62 02/10/24 18:04 82 103/60 100 02/10/24 18:02 83 103/58 L 02/10/24 18:00 82 113/55 L 02/10/24 17:59 88 100 02/10/24 17:58 85 124/57 L 02/10/24 17:56 86 121/64 02/10/24 17:54 83 122/68 100 02/10/24 17:52 93 H 124/71 02/10/24 17:49 85 100 02/10/24 17:46 86 120/66 02/10/24 17:44 81 100 02/10/24 17:32 37.1 C 22 02/10/24 17:04 77 123/73 02/10/24 16:40 36.9 C 16 02/10/24 16:04 69 128/73 02/10/24 15:48 36.6 C 20 02/10/24 15:11 78 105/56 L 02/10/24 14:04 93 H 20 116/62 02/10/24 12:55 88 112/67 02/10/24 12:39 89 113/68 02/10/24 12:23 91 H 113/63 02/10/24 12:08 36.8 C 90 20 116/64 02/10/24 11:53 87 16 114/67 02/10/24 11:38 88 20 108/66
[2024-02-10] MEDS: LIDOCAINE 2%/EPINEPHRINE 1:200,000 20 ML PF EPI STA (22:07)
[2024-02-10] MEDS: SODIUM CHLORIDE 0.9% PF INJ 10 ML VIAL EPI STA (22:07)
[2024-02-10] MEDS: fentaNYL citrate PF 100 MCG/2 ML VIAL EPI STA (22:07)
[2024-02-10] MEDS: BUPIVACAINE 0.25% PF 30 ML VIAL EPI STA (22:07)
[2024-02-10] MEDS ORDERED: BENZOCAINE 20% SPRY 85 APPLN/85 GM CAN EXT PRN (23:10)
[2024-02-10] MEDS ORDERED: HYDROCORTISONE ACETATE 25 MG SUPP PR PRN (23:10)
--- NOTE | 2024-02-10 23:17 | Delivery Summary ---
Vaginal Delivery Summary Date of Service February 10, 2024 Vaginal Delivery Summary Patient was found to be fully dilated and desires to push. She pushed for 3 times only and delivered the head and then shoulders with minimal traction. The baby was handed off to the mother. The cord was clampedx2 and cut at 1 minute. The vagina and perineum were checked and found to have 1st degree right labia laceration. It was repaired with 3-0 Vicryl on SH needle. Vagina and perineum were intact. The placenta was delivered spontaneously as intact and complete at []. The uterus was explored and found to be empty. EBL was [] ml. The fundus was firm The baby was a viable [] infant, Apgars 8/8, the weight is pending The mother and the baby tolerated the procedure well. No complications happened and I was present during whole procedure.
--- NOTE | 2024-02-10 23:48 | Anesthesia Procedure Note ---
Date of Service February 10, 2024 Anesthesia Post Epidural Note Vital Signs Vital Signs: Temp Pulse Resp BP Pulse Ox 36.7 C 84 16 126/71 92 02/10/24 21:30 02/10/24 23:35 02/10/24 22:30 02/10/24 23:35 02/10/24 23:27 Pain Intensity Abdomen: Pain Intensity: 0 Notes Mental Status: alert / awake / arousable Nausea / Vomiting: adequately controlled Pain: adequately controlled Airway Patency, RR, SpO2: stable & adequate BP & HR: stable & adequate Hydration State: stable & adequate Neuraxial Anesthesia: was administered and sensory block is resolving Anesthetic Complications: no major complications apparent and Pt Satisfied with anesthetic care Epidural: Removed without complications and With tip intact
[2024-02-10] MEDS: DIPHTHER/TETAN/PERTUS Vaccine (Tdap, Adol/Adult) 0.5mL IM ONE (23:53)
[2024-02-10] MEDS: MEASLES, MUMPS & RUBELLA VIRUS VACCINE (MMR) 0.5ML VIAL SQ ONE (23:54)
[2024-02-11] MEDS: IBUPROFEN 600 MG TAB PO PRN (02:14)
[2024-02-11 06:36] LABS: Hematocrit (blood only) 27.8 % (37.0-47.0); Hemoglobin 9.4 g/dl (12.0-16.0); Mean Corpuscular Hemoglobin 30.2 pg (25.0-34.0); Mean Corpuscular Hgb Conc 33.8 g/dL (32.0-36.0); Mean Corpuscular Volume 89.4 fL (80.0-100.0); Mean Platelet Volume 9.7 fL (9.4-12.4); Platelet Count 236 K/uL (130-400); RDW Coefficient of Variation 12.9 % (11.5-14.5); RDW Standard Deviation 41.9 fL (36.4-46.3); Red Blood Count 3.11 M/uL (4.20-5.40); White Blood Count 17.42 K/ul (4.8-10.8)
[2024-02-11] MEDS: PRENATAL VITAMIN 1 TAB PO SCH (08:56)
[2024-02-11] MEDS: DOCUSATE SODIUM 100 MG CAP PO SCH (08:56)
[2024-02-11] MEDS: FERROUS SULFATE 325 MG TAB PO SCH (08:56)
[2024-02-11] MEDS: POLYETHYLENE (MIRALAX) 17 GM PACK PO SCH (08:57)
--- NOTE | 2024-02-11 10:10 | Obstetrical Progress Note ---
Date of Service February 11, 2024 Assessment & Plan Admission and Anticipated Discharge Date Admission Date: February 10, 2024 Subjective abdomen soft and non tender no calf tenderness ambulating well vaginal bleeding scant hgb 9.4 Results & Data Vital Signs (Past 12 Hours) Vital Signs Temp Pulse Pulse Resp BP BP Pulse Ox 02/11/24 07:20 36.8 C 55 L 16 117/74 99 02/11/24 02:00 36.6 C 78 18 118/76 97 02/11/24 01:10 86 109/63 02/11/24 00:50 88 128/70 02/11/24 00:30 85 118/66 02/11/24 00:05 80 123/67 02/10/24 23:50 78 127/74 02/10/24 23:35 84 126/71 02/10/24 23:27 95 H 92 02/10/24 23:24 87 100 02/10/24 23:23 90 123/77 02/10/24 23:19 92 H 100 02/10/24 23:14 98 H 100 02/10/24 23:09 90 100 02/10/24 23:07 85 125/60 02/10/24 23:05 36.7 C 02/10/24 23:04 85 99 02/10/24 22:59 88 100 02/10/24 22:54 81 100 02/10/24 22:52 120 H 99/75 L 02/10/24 22:49 94 H 83 L 02/10/24 22:44 80 100 02/10/24 22:39 100 02/10/24 22:39 78 02/10/24 22:39 75 98/54 L 02/10/24 22:34 73 100 02/10/24 22:30 16 02/10/24 22:30 16 02/10/24 22:29 78 100 02/10/24 22:24 100 02/10/24 22:24 83 02/10/24 22:24 75 108/61 02/10/24 22:19 80 100 02/10/24 22:14 80 100 O2 Del Method 02/11/24 07:20 Room Air 02/11/24 02:00 Room Air 02/11/24 01:10 02/11/24 00:50 02/11/24 00:30 02/11/24 00:05 02/10/24 23:50 02/10/24 23:35 02/10/24 23:27 02/10/24 23:24 02/10/24 23:23 02/10/24 23:19 02/10/24 23:14 02/10/24 23:09 02/10/24 23:07 02/10/24 23:05 02/10/24 23:04 02/10/24 22:59 02/10/24 22:54 02/10/24 22:52 02/10/24 22:49 02/10/24 22:44 02/10/24 22:39 02/10/24 22:39 02/10/24 22:39 02/10/24 22:34 02/10/24 22:30 02/10/24 22:30 02/10/24 22:29 02/10/24 22:24 02/10/24 22:24 02/10/24 22:24 02/10/24 22:19 02/10/24 22:14
[2024-02-11] MEDS: bisacodyL 5 MG TABEC PO SCH (20:52)
[2024-02-12] MEDS ORDERED: bisacodyL 10 MG SUPP PR PRN
[2024-02-12 00:44] VITALS: O2SAT 99
[2024-02-12 06:33] LABS: Hematocrit (blood only) 29.7 % (37.0-47.0); Hemoglobin 9.6 g/dl (12.0-16.0)
[2024-02-12 08:51] VITALS: RESP 18
--- NOTE | 2024-02-12 09:08 | Discharge Summary ---
Date of Service February 12, 2024 Admission HPI Per Admitting Provider Patient is [id number] -0-2-1 at40 weeks and 6 days of gestation who was admitted for induction of labor for postdates. She has no complaints. She denies contractions, leakage of up, vaginal bleeding. She reports good movements. Her has been uncomplicated, GBS negative. She has a history of depression but has not been on medications for years, patient denies any symptoms and feels well. h/o medical marijuana use Discharge Data Consultations 02/10/24 10:27 Consult Anesthesiology Stat Hospital Course (1) Post-term , 40-42 weeks of gestation: 34-year-old -0-2-1 at 40 weeks and 6 days of gestation, scheduled for induction of labor for postdates, Vital signs stable afebrile, GBS negative, Cervix favorable, Plan admit, monitor, labs, IV oxytocin per protocol and add AROM when able, Anticipate , All questions were answered. Discharge Instructions ACTIVITY RECOMMENDATIONS: * Gradual return to full activity over the next 2-3 weeks. * No lifting - nothing heavier than baby over the next 2-3 weeks. * Do not engage in vigorous exercise, sexual activity or sports until cleared by your physician. * Do not drive or operate any motorized equipment until cleared by your physician. * You may shower/bathe daily. BREAST CARE: If you are not breast feeding: * Wear a supportive bra 24 hours a day for one to two weeks. * Avoid stimulating your breasts and nipples as much as possible during the first few weeks after delivery. * When taking a shower, have the warm water hit your back, not breasts. * When your breasts feel full, apply ice packs. Usually three to four times a day helps ease the discomfort. * Take a mild pain medication (Tylenol/Motrin) when you are uncomfortable. If breast feeding: * Use breast milk to lubricate nipples. Lansinoh cream may be used for sore nipples. You do not need to remove cream prior to breast feeding. If using a different brand of cream, check the label for directions regarding removal of cream prior to nursing. * Wear a supportive bra. * If having problems with breasts or breast feeding, call a framing consultant or your health care provider. EPISIOTOMY CARE: After delivery, if you have an episiotomy (stitches), the following steps will ease discomfort and aid healing. * For the first 24 hours after delivery, place ice packs next to your episiotomy to help reduce swelling. * After the first 24 hour-period, sitz baths, either portable or in the tub, are suggested. A shower with a shower arm sprayed over the episiotomy may be comforting. * Kristina care should be done after each voiding and bowel movement. Squirt warm water from a plastic bottle over the perineum (region of the body between the anus and urinary opening) and pat dry. * Use Dermoplast to ease discomfort. Shake container. [place] directly over the episiotomy. * Place a Tucks on a clean sanitary pad next to your episiotomy. OVER THE COUNTER MEDICATION: * For discomfort or pain, you may use Acetaminophen (Tylenol), Ibuprofen (Advil), or Naproxen (Aleve) following the package directions. * For constipation you may use Colace following the package directions. SPECIAL CARE INSTRUCTIONS: When you are discharged from the hospital, it is important for you to follow the instructions listed below: * During the first week at home, you should be able to care for yourself and your baby. In addition, the usual light household activities are encouraged. * Limit your activities to the way you feel. Do not try to clean the house or move furniture. Be sensible. * If you actively engage in sports and have done so up until the time of your delivery, you may resume these activities as soon as you feel able. This may take up to one month or even longer. Use good judgment. * Continue to take your vitamins for at least six weeks after the of your baby. * Your diet need not be limited unless you were on a special diet before your delivery. Breast-feeding mothers need around 2500 calories per day and at least 64-80 ounces of fluid per day (8 to 10 glasses). * You should eat foods from the four major food groups. Crash diets or fad diets are to be avoided. Eating lean meats, fresh fruits and vegetables, low-fat dairy products, high fiber foods and a regular exercise program, will help you get back to your pre- weight without putting your health at risk. * Constipation is sometimes a problem after delivery. Take a mild laxative as needed. If breast feeding, Milk of Magnesia is acceptable to use. You may use a suppository or Fleets enema if no episiotomy. * A daily shower or tub bath is suggested. Be sure to thoroughly and gently dry the perineum. * A bloody vaginal discharge will usually continue until around four weeks post . A small amount of bleeding may continue for as long as six weeks. Vaginal discharge changes from the bright red bleeding after delivery to pink then brownish and finally yellowish-pink before becoming white and disappearing. * Bleeding may increase with activity. Your first period may come in 4-8 weeks. If you are breast feeding, your period may be delayed even longer. * [place] (sex) can begin whenever both you and your partner feel comfortable and do not have any form of genital infection. It is recommended that you wait until after your return appointment and discuss with your physician. If you have questions, please talk to your health care practitioner. A condom should be used to prevent infection and . * Foreplay, gentle intercourse and lubrication is very important the first several times to prevent pain. A water-based lubricant such as K-Y jelly or Astroglide may be used. * Tampons may be used six weeks after delivery. * Douching should be avoided for 6 weeks after delivery. * If you have RH negative blood and your baby is RH positive, you will receive RHOGAM by injection prior to discharge. The nurse will give you a card to keep with you that has the date and place that you received RHOGAM after delivery. * During your care, you had a Rubella screen done to check for the presence of rubella antibodies in your blood. If your test was negative, you will receive a Rubella vaccine prior to discharge. This vaccine may cause a fever, soreness at the injection site and flu-like symptoms. If these symptoms persist, notify your health care practitioner. is not advised for three months after a Rubella vaccine. There is a higher chance of having a baby with defects if conceived within three months of getting the vaccine. * If you were discharged 24 hours from delivery or before 48 hours: Visiting nurses will come to your home 48 hours after discharge to assess you and your baby. The visiting nurse will meet with you while you are in the hospital to arrange a time and get directions to your home. * Verbalizes understanding of car seat law as reviewed with patient nursing. * Car Seat hand-out given and reviewed with patient by nursing. * Shaken baby information reviewed with patient by nursing. Call you doctor if: * Heavy bleeding (saturating several pads an hour) or passing clots the size of your fist. * A fever >101 degrees F (38.3 degrees C) on two occasions four hours apart and/or chills. * Unusual pain in the pelvic or vaginal areas. * "Baby Blues" lasting longer than two weeks. If you have any questions or concerns, call your health care practitioner at . FOLLOW-UP VISIT: * Please call the office at to schedule 3 and 6 week examination. It is important you keep this appointment. * It is important for you to make arrangements for either yearly or twice yearly check-ups thereafter. Supervising Physician Co-Signing Physician Notes Shari BERRY
--- NOTE | 2024-02-12 09:09 | Discharge Summary ---
Date of Service February 12, 2024 Admission HPI Per Admitting Provider Patient is [id number] -0-2-1 at40 weeks and 6 days of gestation who was admitted for induction of labor for postdates. She has no complaints. She denies contractions, leakage of up, vaginal bleeding. She reports good movements. Her has been uncomplicated, GBS negative. She has a history of depression but has not been on medications for years, patient denies any symptoms and feels well. h/o medical marijuana use Discharge Data Consultations 02/10/24 10:27 Consult Anesthesiology Stat Hospital Course (1) Post-term , 40-42 weeks of gestation: 34-year-old -0-2-1 at 40 weeks and 6 days of gestation, scheduled for induction of labor for postdates, Vital signs stable afebrile, GBS negative, Cervix favorable, Plan admit, monitor, labs, IV oxytocin per protocol and add AROM when able, Anticipate , All questions were answered.
[2024-02-12 12:21] VITALS: PULSE 72; TEMP 98.2
[2024-02-12 12:31] VITALS: BP 106/71
== END 2024-02-12 14:20 | disposition home or self-care (01) | DRG 807 ==
LOC: 4S1 07:42 → 4E2 02-11 03:24